=== PATIENT | female | born 1980 | race Caucasian/White ===

== ENCOUNTER 2017-09-02 16:22 | Observation (INO) ==
[2017-09-02] MEDS ORDERED: 0.9 % Sodium Chloride 1,000 ML IVC ONE ×2 (16:40→18:23)
[2017-09-02 16:57] LABS: Bilirubin,Urine Small (Negative); Blood,Urine Negative (Negative); Clarity,Urine Cloudy (Clear); Color,Urine Dark Yellow (Yellow); Glucose,Urine (UA) Normal (Normal); Ketones,Urine Negative (Negative); Leukocyte Esterase,Urine Small (Negative); Nitrite,Urine Negative (Negative); PH,Urine 5.5 pH Units (5.0-8.0); Protein,Urine 30 mg/dL (Neg-Trace); Specific Gravity,Urine 1.028 (1.010-1.025); Urobilinogen,Urine Normal (Normal)
[2017-09-02 16:58] LABS: Bacteria,Urine None Seen per hpf (None-Few); Hyaline Casts,Urine Few per lpf (None-Few); Squamous Epithelial Cell,Urine Many per lpf (None-Few)
[2017-09-02 17:16] LABS: Basophils # 0.1 K/mcL (0.0-0.2); Basophils % 0.7 %; Eosinophils # 0.1 K/mcL (0.0-0.6); Hematocrit 41.1 % (35.3-44.9); Hemoglobin 13.4 g/dL (11.5-15.4); Immature Granulocytes % 0.2 % (0-4); Lymphocytes # 5.7 K/mcL (0.6-4.6); Mean Corpuscular HGB Conc 32.6 g/dL (31.6-35.5); Mean Corpuscular Hemoglobin 29.5 pg (28.0-33.3); Mean Corpuscular Volume 90.5 fL (83.0-100.0); Monocytes # 1.1 K/mcL (0.0-1.3); Monocytes % 8.2 %; Neutrophils # 6.2 K/mcL (1.6-8.9); Platelet Count 340 K/mcL (140-400); Red Blood Count 4.54 M/mcL (3.82-4.97); Red Cell Distribution Width 12.8 % (11.5-14.5); Segmented Neutrophils % 46.9 %
[2017-09-02 17:19] LABS: Prothrombin Time 11.2 Seconds (9.4-12.1)
[2017-09-02 17:21] LABS: Activated Partial Thrombo Time 30.3 Seconds (26.0-36.0)
--- NOTE | 2017-09-02 17:25 | Emergency Department Note ---
Disposition Clinical Impression: Acute kidney insufficiency, Dehydration, Stress reaction causing mixed disturbance of emotion and conduct Disposition: Admitted As Inpatient Condition: Good Time of Disposition: 19:41 General Adult HPI - General Chief complaint: ED Dizziness Stated complaint: passed out / light headed Time Seen by Provider: 09/02/17 16:39 Source: patient Mode of arrival: ambulatory Limitations: no limitations Nursing Notes Reviewed: Yes Vital Signs Reviewed: Yes - History of Present Illness HPI Narrative: Patient presents to emergency room for evaluation of intermittent confusion intermittent difficulty with speech. Patient denies any recent trauma or injury of the same symptoms presently 3 days ago. THIS CAME ON SECONDARY DISTRESS AT THIS TIME. SHE HAS A HISTORY OF STRESS-INDUCED RELATED ISSUES FROM SEVERAL YEARS AGO. SHE DOES NOT TAKE ANY HOME MEDICATIONS AT THIS POINT. PATIENT DENIES ANY TRAUMA OR ILLNESS. SHE IS NOT ON ANY CONTROL AND HAS HAD A TOTAL HYSTERECTOMY. PATIENT OTHERWISE IS IN NO DISTRESS AND PHYSICAL PRESENTATION SHE IS VERY TEARFUL AND CRYING WHEN I PRESENTED THE ROOM. PATIENT DENIES CHEST PAIN SHORTNESS WITH HEADACHE VISION CHANGES NAUSEA VOMITING OR DIARRHEA. Onset (ago): hour(s) Radiation: non-radiation Pain Scale: 0 Consistency: intermittent Improves with: rest Worsens with: other Associated symptoms: Reports: denies other symptoms Treatments Prior to Arrival: none - Related Data Home Medications Medication Instructions Recorded Confirmed Ibuprofen 12/30/15 Previous Rx's Medication Instructions Recorded Ciprofloxacin HCl [Cipro] 250 mg PO BID #10 tablet 03/29/16 Fluconazole [Diflucan] 150 mg PO ONCE #1 tab 03/29/16 Allergies Allergy/AdvReac Type Severity Reaction Status Date / Time nitrofurantoin Allergy See Verified 03/29/16 19:50 [From Macrobid] Comments All systems ED: reviewed and negative except as stated. Review of Systems: As Per HPI Constitutional: Denies: fever, chills, weakness Cardiovascular: Denies: chest pain, palpitations, dyspnea on exertion Respiratory: Denies: cough, dyspnea, wheezes Gastrointestinal: Denies: nausea, vomiting, diarrhea Genitourinary: Denies: dysuria, frequency Musculoskeletal: Denies: back pain, neck pain Neurological: Denies: headache, weakness Psychiatric: Reports: anxiety, depression Past Medical History - Past Medical History Attestation: Yes The following information was validated with the patient. Source: patient Medical history: Reports: kidney stones, valvular heart disease, other Psychiatric history: Reports: no psych history - Social History Smoking Status: Current every day smoker Smokeless Tobacco Status: No Alcohol use: Reports: none Drug use: Reports: none Physical Exam - General Limitations: no limitations General appearance: alert, in no apparent distress - Head Head exam: atraumatic, normocephalic, normal inspection - Eye Eye exam: Present: normal appearance, PERRL, EOMI. Absent: miosis, mydriasis - ENT ENT exam: normal exam, normal oropharynx, mucous membranes moist - Neck Neck exam: Present: normal inspection, full ROM, trachea midline - Chest Chest inspection: Present: normal inspection, symmetric chest wall rise - Respiratory Respiratory exam: Present: normal lung sounds bilaterally - Cardiovascular Cardiovascular exam: Present: regular rate, normal rhythm, normal heart sounds - Abdominal Exam Abdominal exam: Present: soft, Non-Tender, normal bowel sounds. Absent: tenderness, distention, guarding, rebound, rigidity - Extremities Exam Extremities exam: Present: normal inspection, full ROM, normal capillary refill. Absent: tenderness - Back Exam Back exam: Present: normal inspection, full ROM. Absent: tenderness, CVA tenderness (R), CVA tenderness (L) - Neurological Exam Neurological exam: Present: alert, oriented X3, CN II-XII intact, normal gait - Skin Skin exam: Present: warm, dry, intact, normal color Course Course Narrative: Patient seen and examined the time of arrival. See history of present illness. 37-year-old female presents to emergency room with complaints including difficulty with speech, dizziness, syncopal events, lightheadedness. Patient has been under a great stressor lately including several home life stressors and work-related issues. Patient denies any trauma or injury. Denies any new medications. Denies any illnesses including fevers chills nausea vomiting or diarrhea. Denies chest pain shortness of breath headache or vision change. Patient had onset of symptoms approximately 1 PM this afternoon. Currently on presentation here physical exam is unremarkable except for the patient is very tearful and has some difficulty with getting out words. Patient speaks in full sentences and then within the same sentences to stop and pause and think about what she wants to say. Vital signs were unremarkable. Head is atraumatic pupils are equal round reactive to light and ocular muscles are intact. Oral mucosa and pharynx are patent. Patient has no signs of facial asymmetry. Trachea is midline. Lungs are clear heart is regular abdomen is soft. Patient moves all 4 extremities with purpose with no signs of acute cerebellar dysfunction or ataxia. Low clinical suspicion for neurologic related issue at this time patient appears to have stress-related aphasia secondary to stressors at home including issues with her and children. Patient will have CT imaging workup and EKG completed at this time for definitive evaluation. Disposition pending workup and treatment course. - Reevaluation(s) Reevaluation #1: CT imaging is otherwise unremarkable. Labs are otherwise normal except patient does have a significantly elevated creatinine with you and and a decreased GFR. Concern is noted for dehydration and acute kidney insufficiency of unknown etiology. Urine drug screen and urinalysis are still pending at this point. Patient will be provided with fluids. Continue to be monitored. Consultation placed to the neurologist . Reviewed the presentation symptoms and history and he agrees this is not a stroke I presentation and physical is more stress-induced aphasia secondary to life stressors at this time. Recommended further evaluation inpatient setting secondary to the medical issues. We will monitor urine to admission process is completed Time: 19:10 Reevaluation #2: Patient reevaluated she is speaking in full sentences again at this time. Family is all the bedside. She was scheduled to have an outpatient renal ultrasound completed tomorrow secondary to some kidney issues. Her most recent creatinine was reviewed at 0.7 today and he functions 2.28 with a GFR that is significantly low as well as an elevated BUN/creatinine. Patient otherwise is negative workup and evaluation. Hospice patient this time for admission. Time: 19:39 Reevaluation #3: Patient discussed with the hospitalist Dr. Sequeira. No other recommendations and issues at this time. Patient will be brought in for evaluation of kidney insufficiency secondary to unknown etiology. Consultation is placed for neurology for inpatient evaluation. No other concerns or issues noted this time. Patient will be admitted for definitive evaluation. Time: 19:50 Vital Signs Temperature 97.8 F 09/02/17 16:31 Pulse Rate 104 09/02/17 16:31 Respiratory Rate 18 09/02/17 16:31 Blood Pressure 126/78 09/02/17 16:31 O2 Sat by Pulse Oximetry 95 09/02/17 16:31 Temperature 97.8 F 09/02/17 16:31 Pulse Rate 104 09/02/17 16:31 Respiratory Rate 18 09/02/17 16:31 Blood Pressure 126/78 09/02/17 16:31 O2 Sat by Pulse Oximetry 95 09/02/17 16:31 Oxygen Delivery Oxygen Delivery Room Air Medical Decision Making - MDM Narrative Medical decision making narrative: Stress reaction, acute kidney insufficiency, dehydration - Medical Records Medical records reviewed: Yes I reviewed the patient's medical records. - Lab Data Lab results reviewed: Yes I reviewed the patient's lab results. - Radiology Data Radiology results reviewed: Yes I reviewed the patient's radiology results. CT imaging of the head is negative for acute intracranial pathology - EKG Data EKG #1 EKG attestation: Yes I reviewed and interpreted this EKG. EKG results narrative: EKG shows sinus rhythm. Ventricular rate of 76. [place] interval 163. QRS duration 104. QTC of 432. Intervals are within normal limits. Morphology appears to be similar to EKG performed on . Patient has no acute signs of ST segment elevation or myocardial infarction
[2017-09-02 17:27] LABS: BUN/Creatinine Ratio 11 (6-26); Blood Urea Nitrogen 26 mg/dL (7-20); Calcium 10.2 mg/dL (8.6-10.8); Carbon Dioxide 25 mEq/L (19-29); Chloride 102 mEq/L (98-109); Glucose 101 mg/dL (70-99); Osmolality,Calculated 295 (280-300); Potassium 3.3 mEq/L (3.5-4.5); Sodium 140 mEq/L (136-145); eGFR For African Americans 26 (> 60); eGFR For Non-African Americans 22 (> 60)
[2017-09-02] MEDS ORDERED: *HR* LORazepam 2 MG/ML VIAL IVP ONE (17:31)
[2017-09-02] MEDS ORDERED: *HR* LORazepam 2 MG/ML VIAL ONE (17:34)
[2017-09-02 18:08] LABS: Acetaminophen < 1.0 mcg/mL (10-30); Ethanol < 10 mg/dL (0-10); Salicylate < 5.0 mg/dL (15-30)
[2017-09-02 18:36] LABS: Amphetamine Screen,Urine Negative ng/mL (Cutoff=1000); Barbiturate Screen,Urine Negative ng/mL (Cutoff=200); Benzodiazepines Screen,Urine Negative ng/mL (Cutoff=200); Cannabinoid Screen,Urine Negative ng/mL (Cutoff = 50); Cocaine Screen,Urine Negative ng/mL (Cutoff= 300); Opiate Screen,Urine Negative ng/mL (Cutoff=300); Phencyclidine Screen,Urine Negative ng/mL (Cutoff=25)
[2017-09-02] MEDS ORDERED: *HR* Morphine 2 MG/ML SYRINGE IVP ONE (19:39)
[2017-09-02] MEDS ORDERED: Ondansetron 4 MG/2 ML VIAL IVP ONE (19:39)
[2017-09-02] MEDS ORDERED: Naloxone 0.4 MG/ML INJ IVP PRN (20:06)
[2017-09-02] MEDS ORDERED: Ondansetron 4 MG/2 ML VIAL IVP PRN (20:06)
[2017-09-02] MEDS ORDERED: Acetaminophen 325 MG TABLET PO PRN (20:06)
[2017-09-02] MEDS ORDERED: *HR* Promethazine 25 MG/ML VIAL IVP PRN (20:06)
[2017-09-02] MEDS ORDERED: MOM Conc 10 ML UD.LIQ PO PRN (20:06)
[2017-09-02] MEDS: 0.9 % Sodium Chloride 1,000 ML IVC SCH (22:43)
--- NOTE | 2017-09-02 23:35 | Internal Med History&Physical ---
Date of Encounter: 09/02/17 Time of Encounter: 22:15 Assessment and Plan (1) Speech abnormality Current visit: Yes Status: Acute will place the pt into tele for observation her speech abnormality seems to mostly conductive and functional disorder however still need to r/o CVA given her morbid obesity, age, HTN and FH of CVA Will place her on monitor Do neuro checks Q4hr MRI of Brain, 2 D Echo and Carotid doppler EKG showed as NSR , No ST T changes started on ASA 81 mg will check FLP in AM Qualifiers: Qualified Code(s): R47.9 - Unspecified speech disturbances (2) Acute kidney insufficiency Current visit: Yes Status: Acute Due to dehydration + Medication Lisinopril / Hctz Also concerned for CKD-2 Will start her on IV fluids hold Lisinopril / Hactz Her BP running slightly on lower side started on IV fluids (3) Dehydration Current visit: Yes Status: Acute on IVF (4) Stress reaction causing mixed disturbance of emotion and conduct Current visit: Yes Status: Acute Will consult SW for further eval Also recommend to f/u with her regular behavioral therapist as an out pt (5) Anxiety Current visit: Yes Status: Acute Resumed home meds Internal Medicine - H&P: HPI Chief complaint: Confusion / speech problems Admitted From: Emergency Dept Plans for Post Hospital Care: Home History of present illness: Ms. Hanna is a 37 year old female with known PMH of HTN, Morbid obesity, Anxiety and ?? CKD-2 who presented to emergency room for evaluation of intermittent confusion intermittent difficulty with speech started this afternoon. Patient denies any recent trauma or injury of the same symptoms presently 3 days ago. She had CT of Head done which did not show any acute hemorrhage / no acute pathology. She also mentioned she had lot of stress at home lately, denied any abusive relatonship. She denied any suicidal / homicidal ideation. She lives with her and son. She quit her on 06/2017. Past Med Surg Social Fam HX - Past Medical History Medical history: kidney stones, valvular heart disease, other Psychiatric history: no psych history - Past Surgical History Surgical History: - Social History Smoking Status: Current every day smoker Smokeless Tobacco Status: No Alcohol use: none Drug use: none - Family History Mother Adopted: No Living Status: Still Living Hx Family Cardiac Disorders: Yes Hx Family Respiratory Disorders: No Hx Family Cancer: No Hx Family GI Disorders: No Hx Family Genitourinary Disorders: No Hx Family Endocrine Disorder: Yes Hx Family Musculoskeletal Disorders: No Hx Family Neuromuscular Disorders: No Hx Family Neurologic Disorders: No Hx Family HEENT Disorders: Yes Hx Family Autoimmune Disorders: No Hx Family Reproductive Disorders: No Hx Family Psychosocial Disorders: No Hx Family Medical Disorders: No Internal Medicine - H&P: Meds Amoxicillin [Amoxil] 500 mg PO BID 09/02/17 [History] DULoxetine [Cymbalta] 20 mg PO BID 09/02/17 [History] Gabapentin [Neurontin] 300 mg PO TID 09/02/17 [History] Lisinopril/Hydrochlorothiazide [Zestoretic 20-12.5 mg Tablet] 1 each PO BID 08/11 [History] Topiramate [Topamax] 25 mg PO BID 09/02/17 [History] Trazodone HCl 100 mg PO HS 09/02/17 [History] 3 Allergy/AdvReac Type Severity Reaction Status Date / Time nitrofurantoin Allergy See Verified 03/29/16 19:50 [From Macrobid] Comments All Systems PM: A 10-system review of systems was performed and is negative for pertinent findings except as documented above in the HPI. Review of systems: All the systems are reviewed everything is benign except the systems and symptoms I mentioned in the history of present illness - Constitutional Vitals: Temp Pulse Resp BP Pulse Ox 97.6 F 57 15 99/68 97 09/02/17 23:08 09/02/17 23:08 09/02/17 23:08 09/02/17 23:08 09/02/17 23:08 General appearance: Present: A&O X 3, no acute distress, answers questions appropriately (however some times still finding words) - Head Head exam: Present: atraumatic, normal inspection - Neck Neck exam general surgery: Present: supple - Respiratory Respiratory exam: Present: decreased breath sounds. Absent: accessory muscle use, rales, rhonchi, wheezes - Cardiovascular Cardiovascular exam: Present: RRR, +S1, +S2. Absent: diastolic murmur, gallop, rubs, systolic murmur - GI/Abdominal GI/Abdominal exam: Present: distended, soft. Absent: guarding, rebound, rigid, tenderness - Extremities Exam Extremities exam: Absent: calf tenderness, pedal edema, tenderness - Back Exam Back exam: Absent: CVA tenderness (L), CVA tenderness (R) - Neurological Exam Neurological exam: Present: alert, CN II-XII intact, oriented X3, strengths equal and symetr throughout, speech deficit (still has some difficulty to find words). Absent: motor sensory deficit, pronater drift, facial droop - Psychiatric Psychiatric exam: Present: anxious, depressed. Absent: suicidal ideation - Skin Skin exam: Present: dry Internal Med - H&P Results - Labs CBC & Chem 7: 09/02/17 16:57 09/02/17 16:57 Labs: Cardiac Enzymes 09/02/17 Range/Units 22:08 Troponin I 0.00 (0-0.03) ng/mL - Impressions ITS Impressions Retroperitoneum Ultrasound 09/02/17 20:13 IMPRESSION: Unremarkable ultrasound of the kidneys. D/ / Darren Escamilla MD / Darren Escamilla MD Interpreting Provider: Darren Escamilla MD Brain MRI 09/02/17 20:14 IMPRESSION: Unremarkable MRI of the brain. No acute intracranial abnormality. D/ / 09/02/2017 21:59:56 Jose Cage MD / Tierney Esteves Interpreting Provider: Jose Cage MD
[2017-09-02] MEDS: Gabapentin 300 MG CAPSULE PO SCH (23:55)
[2017-09-02] MEDS: *HR* HYDROcodone/Acet 5/325 mg TABLET PO PRN (23:55)
[2017-09-03] MEDS: traZODone 50 MG TABLET PO SCH ×2 (00:27→20:14)
[2017-09-03] MEDS: Topiramate 25 MG TABLET PO SCH ×3 (00:27→20:15)
[2017-09-03] MEDS: *HR* Morphine 2 MG/ML SYRINGE IVP PRN ×5 (02:45→20:14)
[2017-09-03] MEDS: *HR* HYDROcodone/Acet 5/325 mg TABLET PO PRN ×3 (04:52→21:57)
[2017-09-03 07:03] LABS: Basophils # 0.1 K/mcL (0.0-0.2); Basophils % 0.7 %; Eosinophils # 0.1 K/mcL (0.0-0.6); Eosinophils % 1.6 %; Hematocrit 34.6 % (35.3-44.9); Immature Granulocytes % 0.2 % (0-4); Lymphocytes # 5.1 K/mcL (0.6-4.6); Lymphocytes % 58.2 %; Mean Corpuscular HGB Conc 31.8 g/dL (31.6-35.5); Mean Corpuscular Hemoglobin 29.4 pg (28.0-33.3); Mean Corpuscular Volume 92.5 fL (83.0-100.0); Mean Platelet Volume 10.4 fL (9.4-12.4); Monocytes # 0.8 K/mcL (0.0-1.3); Neutrophils # 2.6 K/mcL (1.6-8.9); Platelet Count 266 K/mcL (140-400); Red Blood Count 3.74 M/mcL (3.82-4.97); Segmented Neutrophils % 30.3 %
[2017-09-03] MEDS: 0.9 % Sodium Chloride 1,000 ML IVC SCH (07:19)
[2017-09-03 07:20] LABS: Albumin 3.2 g/dL (3.5-5.0); Albumin/Globulin Ratio 1.1 (1.1-2.2); Bilirubin,Total 0.3 mg/dL (0.2-1.2); Chol/HDL Ratio 6.7 (0-4.9); Potassium 3.2 mEq/L (3.5-4.5); Total Protein 6.2 g/dL (6.0-8.3)
[2017-09-03 07:21] LABS: Calcium 8.6 mg/dL (8.6-10.8)
[2017-09-03] MEDS ORDERED: Perflutren Lipid Microsphere 1.3 ML in 0.9 % Sodium Chloride 8.7 ML IVP ONE (08:22)
[2017-09-03] MEDS: Gabapentin 300 MG CAPSULE PO SCH ×3 (09:58→20:15)
[2017-09-03] MEDS: Aspirin Enteric Coated 81 MG Tablet PO SCH (10:00)
[2017-09-03] MEDS ORDERED: Potassium Chloride Elixir 20 MEQ/15 ML UDC PO ONE (11:41)
[2017-09-03] MEDS ORDERED: 0.9 % Sodium Chloride 1,000 ML IVC SCH (11:44)
--- NOTE | 2017-09-03 13:55 | Neurology - Consult Note ---
<[place] - Last Filed: 09/03/17 13:49> Date of Encounter: 09/03/17 Time of Encounter: 11:40 Assessment and Plan (1) Stress reaction causing mixed disturbance of emotion and conduct Current Visit: Yes Status: Acute Patient presents to [place] after reports of neurologic symptoms including difficulty with speech and word finding. Physical exam showed decreased upper and lower extremity strength, was unclear how much patient was trying. Head CT , MRI, and echocardiogram were grossly normal without abnormal findings. Patient reported event does not appear to be vascular. Lack of incontinence or tongue lacerations suggest against seizure. Patient does admit to significant stress in her life currently. Imaging so far is negative for acute abnormality including CVA We will obtain EEG Likely prevent stress-induced History of Present Illness Chief complaint: Neurological Deficits HPI: Ms. Hanna is a 37 year old female with past medical history of hypertensionn after having neurological deficits at home. She reports that the first episode occurred last in which she lost consciousness. She states this was from feeling faint and that she was out for a minute. After waking she reports having significant fatigue and having difficulty staying awake she also reports having difficulty forming sentences, though she did not know what she wanted to say. After her loss of consciousness on she states she had a brief episode of double vision that lasted for about an hour. All of these neurological findings want way after sleeping. She was fine until yesterday evening and on her way home from work she began having the same neurologic symptoms. She reports that she was feeling faint and pulled over to the side of her own at which point tingling in her hands and feet upon waking was having blurred vision. She was again having difficulty forming sentences. She states that she has been under increased stress recently on account of her daughter dropping out from school and this has made her anxious. Although she admits to having previous episodes of feeling upset, she responds that she hasn't been upset at this time. Past Med Surg Social Fam HX - Past Medical History Medical history: kidney stones, valvular heart disease, other Psychiatric history: no psych history - Past Surgical History Surgical History: - Social History Smoking Status: Current every day smoker Smokeless Tobacco Status: No Alcohol use: none Drug use: none - Family History Mother Adopted: No Living Status: Still Living Hx Family Cardiac Disorders: Yes Hx Family Respiratory Disorders: No Hx Family Cancer: No Hx Family GI Disorders: No Hx Family Genitourinary Disorders: No Hx Family Endocrine Disorder: Yes Hx Family Musculoskeletal Disorders: No Hx Family Neuromuscular Disorders: No Hx Family Neurologic Disorders: No Hx Family HEENT Disorders: Yes Hx Family Autoimmune Disorders: No Hx Family Reproductive Disorders: No Hx Family Psychosocial Disorders: No Hx Family Medical Disorders: No Medications and Allergies Amoxicillin [Amoxil] 500 mg PO BID 09/02/17 [History] DULoxetine [Cymbalta] 20 mg PO BID 09/02/17 [History] Gabapentin [Neurontin] 300 mg PO TID 09/02/17 [History] Lisinopril/Hydrochlorothiazide [Zestoretic 20-12.5 mg Tablet] 1 each PO BID 08/11 [History] Topiramate [Topamax] 25 mg PO BID 09/02/17 [History] Trazodone HCl 100 mg PO HS 09/02/17 [History] 3 Allergy/AdvReac Type Severity Reaction Status Date / Time nitrofurantoin Allergy See Verified 03/29/16 19:50 [From Macrobid] Comments Review of Systems: Gen: Denies fever, denies chills, reports generalized weakness, reports fatigue as per HPI CV: Denies chest pain, denies palpitations recently Resp: Denies shortness of breath MSK: denies arthralgia, denies focal muscle weakness Neuro: Denies headache, denies confusion, denies focal weakness, reports stable vision as per history of present illness, reports numbness/tingling in her hands and feet bilaterally, reports blurry vision as per history of present illness, denies tongue biting, denies episodes of urinary/bowel incontinence Physical Examination - Vital Signs Vital Signs: Initial Vital Signs Temp Pulse Resp BP Pulse Ox 97.8 F 104 18 126/78 95 09/02/17 16:31 09/02/17 16:31 09/02/17 16:31 09/02/17 16:31 09/02/17 16:31 - Exam Exam: General: Cooperative, pleasant, no acute distress, alert and oriented 3, answers questions appropriately HEENT: Normocephalic, atraumatic, neck supple, trachea midline, Conjunctiva pink , sclera anicteric, EOMI, PERRL, oral mucosa moist, no orophargeal erythema or exudates, no tongue lacerations noted Respiratory: No accessory muscle usage, clear to auscultation bilaterally Cardiovascular: Regular rate and rhythm Extremities: No calf tenderness, noncyanotic, no pedal edema appreciated, warm, lower extremity pulses palpable and symmetrical Neurological: Alert and oriented 3, no facial droop, no focal deficits, cranial nerves II through XII grossly intact bilaterally, rapid alternating movements smooth with good meli, finger to nose slow, sensation to gross touch intact in upper extremities and lower extremities bilaterally, strength 5/ 5 in upper and lower right extremities, strength 4/5 in upper and lower extremities on left, DTRs 1/4 in Achilles, patellar, brachioradialis Skin: Dry, intact, normal color Results - Laboratory Findings CBC and BMP: 09/03/17 06:41 09/03/17 06:41 Abnormal lab findings: Abnormal lab results RBC 3.74 M/mcL (3.82-4.97) L 09/03/17 06:41 Hgb 11.0 g/dL (11.5-15.4) L D 09/03/17 06:41 Hct 34.6 % (35.3-44.9) L 09/03/17 06:41 Lymphocytes # 5.1 K/mcL (0.6-4.6) H 09/03/17 06:41 Potassium 3.2 mEq/L (3.5-4.5) L 09/03/17 06:41 BUN 22 mg/dL (7-20) H 09/03/17 06:41 Creatinine 1.60 mg/dL (0.57-1.11) H 09/03/17 06:41 Est GFR ( Amer) 44 (> 60) L 09/03/17 06:41 Est GFR (Non-Af Amer) 36 (> 60) L 09/03/17 06:41 Glucose 156 mg/dL (70-99) H 09/03/17 06:41 Albumin 3.2 g/dL (3.5-5.0) L 09/03/17 06:41 Triglycerides 323 mg/dL (< 150) H 09/03/17 06:41 VLDL Cholesterol, Calc 65 mg/dL (< 31) H 09/03/17 06:41 HDL Cholesterol 24 mg/dL (40-59) L 09/03/17 06:41 Cholesterol/HDL Ratio 6.7 (0-4.9) H 09/03/17 06:41 Urine Clarity Cloudy (Clear) A 09/02/17 16:50 Ur Specific [place] 1.028 (1.010-1.025) H 09/02/17 16:50 Urine Protein 30 mg/dL (Neg-Trace) H 09/02/17 16:50 Urine Bilirubin Small (Negative) H 09/02/17 16:50 Ur Leukocyte Esterase Small (Negative) H 09/02/17 16:50 Urine Microscopic RBC 5-15 per hpf (0-3) H 09/02/17 16:50 Urine Microscopic WBC 5-15 per hpf (0-3) H 09/02/17 16:50 Ur Squamous Epith Cells Many per lpf (None-Few) H 09/02/17 16:50 Ur Culture Indicated? YES (NO) A 09/02/17 16:50 Salicylates < 5.0 mg/dL (15-30) L 09/02/17 16:57 Acetaminophen < 1.0 mcg/mL (10-30) L 09/02/17 16:57 Consult Discharge Plan - Plan Referrals: Mercedes Stephens, [facility] [Primary Care Provider] - <Everton Boone I - Last Filed: 09/04/17 16:59> Date of Encounter: 09/03/17 Assessment and Plan (1) Speech abnormality Current Visit: Yes Status: Acute Qualifiers: Qualified Code(s): R47.9 - Unspecified speech disturbances (2) Stress reaction causing mixed disturbance of emotion and conduct Current Visit: Yes Status: Acute Patient seen and examined agreed with Dr. Damico documentation she has been getting workup for vascular abnormality as well as for seizures and no focal findings on neurological examination to be suggestive of a stroke or seizure followed results strongly suspect her symptoms are likely related to underlying stress Everton Boone MD History of Present Illness HPI: Ms. Hanna is a 37 year old female All Systems: A 10-system review of systems was performed and is negative for pertinent findings except as documented above in the HPI. Physical Examination - Vital Signs Vital Signs: Initial Vital Signs Temp Pulse Resp BP Pulse Ox 97.8 F 104 18 126/78 95 09/02/17 16:31 09/02/17 16:31 09/02/17 16:31 09/02/17 16:31 09/02/17 16:31 Results - Laboratory Findings CBC and BMP: 09/04/17 07:03 09/04/17 07:03 Abnormal lab findings: Abnormal lab results ESR 28 mm/hr (0-15) H 09/04/17 07:03 Creatinine 1.20 mg/dL (0.57-1.11) H 09/04/17 07:03 Est GFR (Non-Af Amer) 50 (> 60) L 09/04/17 07:03 Glucose 103 mg/dL (70-99) H 09/04/17 07:03 C-Reactive Protein 5 mg/L (Less than 5) H 09/04/17 07:03 Albumin 3.2 g/dL (3.5-5.0) L 09/03/17 06:41 Triglycerides 323 mg/dL (< 150) H 09/03/17 06:41 VLDL Cholesterol, Calc 65 mg/dL (< 31) H 09/03/17 06:41 HDL Cholesterol 24 mg/dL (40-59) L 09/03/17 06:41 Cholesterol/HDL Ratio 6.7 (0-4.9) H 09/03/17 06:41 Ur Leukocyte Esterase Trace (Negative) H 09/03/17 20:02 Urine Microscopic WBC 3-5 per hpf (0-3) H 09/03/17 20:02 Ur Squamous Epith Cells Many per lpf (None-Few) H 09/03/17 20:02 Ur Culture Indicated? YES (NO) A 09/03/17 20:02 Salicylates < 5.0 mg/dL (15-30) L 09/02/17 16:57 Acetaminophen < 1.0 mcg/mL (10-30) L 09/02/17 16:57
--- NOTE | 2017-09-03 15:47 | Internal Med Progress Note ---
<MalsophiaKimberly stoll - Last Filed: 09/03/17 15:43> Date of Encounter: 09/03/17 Time of Encounter: 13:00 - Assessment and plan (1) Speech abnormality Current Visit: Yes Status: Acute Assessment and plan: Patient's workup for CVA largely negative. -Patient started on an antiplatelet aspirin 81 mg. -Neuro following. We will follow their recommendations. -EKG normal sinus rhythm, no ST T-wave changes. -Started on Lipitor today for hyper triglyceridemia. Qualifiers: Qualified Code(s): R47.9 - Unspecified speech disturbances (2) Weight loss Current Visit: Yes Status: Acute Assessment and plan: Patient with an unexplained 37 pound weight loss and reported hematuria as well as mild left-sided flank pain. -Follow-up abdominopelvic CT scan. (3) Stress reaction causing mixed disturbance of emotion and conduct Current Visit: Yes Status: Acute Assessment and plan: consult psychiatry. -FU their recommendations. (4) Acute kidney insufficiency Current Visit: Yes Status: Acute Assessment and plan: Patient with worsening creatinine and intermittent hematuria. Never been seen by a risk control consultant. -Patient's creatinine trended down today after IV fluids and discontinuation of lisinopril and HCTZ. -Blood pressure trending on the low side. -Continue IV fluids. -Consult nephrology (5) Anxiety Current Visit: Yes Status: Acute Assessment and plan: Patient heard loudly crying throughout the evening. -FU psych recommendations. (6) Dehydration Current Visit: Yes Status: Acute Assessment and plan: IVF - Subjective Interval history: Ms. Hanna is a 37-year-old female with past medical history of hypertension, morbid obesity, anxiety, and chronic kidney disease who presented to the emergency department yesterday for evaluation of intermittent difficulty with speech that began prior to arrival. Patient's workup for CVA grossly normal. This morning, patient says she is feeling lightheaded and weak. She states she has had a 39 pound weight loss in the last month. She reports hematuria, although the nurse has not seen any in her head. The patient states she is under significant amount of stress and is seen staring off into space during my visit. Patient stating she is having 6 out of 10 left-sided flank pain which feels crampy and dull. She says it feels like a kidney stone that she had 15 years prior. - Constitutional Vitals: Temp Pulse Resp BP Pulse Ox 98.1 F 75 20 130/71 97 09/03/17 15:07 09/03/17 15:07 09/03/17 15:07 09/03/17 15:07 09/03/17 15:07 General appearance: Present: A&O X 3, no acute distress, answers questions appropriately (however some times still finding words) - Respiratory Respiratory exam: Present: CTAB. Absent: accessory muscle use, rales, rhonchi, wheezes - Cardiovascular Cardiovascular exam: Present: RRR, +S1, +S2. Absent: diastolic murmur, gallop, rubs, systolic murmur - GI/Abdominal GI/Abdominal exam: Present: normal bowel sounds, soft, no peritoneal signs. Absent: distended, tenderness Additional comments: Mild left-sided CVA tenderness. - Extremities Exam Extremities exam: Present: warm, radial pulses palpable and symmetrical. Absent : calf tenderness, cyanotic, pedal edema - Psychiatric Additional comments: Patient appears depressed with a flat affect. Internal Medicine: Result - Labs CBC & Chem 7: 09/03/17 06:41 09/03/17 06:41 Labs: Short CBC 09/03/17 Range/Units 06:41 WBC 8.7 (4.3-11.1) K/mcL Hgb 11.0 L D (11.5-15.4) g/dL Hct 34.6 L (35.3-44.9) % Plt Count 266 (140-400) K/mcL Neutrophils # 2.6 (1.6-8.9) K/mcL BMP 09/03/17 06:41 Sodium 141 Potassium 3.2 L Chloride 109 Carbon Dioxide 24 BUN 22 H Creatinine 1.60 H Glucose 156 H Calcium 8.6 D Cardiac Enzymes 09/02/17 09/03/17 Range/Units 22:08 06:41 Troponin I 0.00 0.01 (0-0.03) ng/mL Liver Function 09/03/17 Range/Units 06:41 Total Bilirubin 0.3 (0.2-1.2) mg/dL AST 32 (5-34) Units/L ALT 44 (0-55) Units/L Alkaline Phosphatase 48 (38-126) Units/L Albumin 3.2 L (3.5-5.0) g/dL - ABG Interpretation ABG results: PT/INR, D-dimer PT 11.2 Seconds (9.4-12.1) 09/02/17 16:57 - Impressions Impressions Retroperitoneum Ultrasound 09/02/17 20:13 IMPRESSION: Unremarkable ultrasound of the kidneys. D/ / Darren Escamilla MD / Darren Escamilla MD Interpreting Provider: Darren Escamilla MD Brain MRI 09/02/17 20:14 IMPRESSION: Unremarkable MRI of the brain. No acute intracranial abnormality. D/ : / 09/02/2017 21:59:56 Jose Cage MD / Tierney Esteves Interpreting Provider: Jose Cage MD Echocardiogram 09/03/17 20:14 Impressions: LVEF 55%. Normal LV chamber size, wall thickness and function. No significant valvular dysfunction. Mildly dilated right ventricle with normal systolic function There is no evidence of a PFO by color Doppler or saline contrast. Left Ventricular Wall Motion: Rest Echo Findings All wall segments showed normal motion. Findings: Study Quality * Technically adequate exam. ECG Findings * Normal sinus rhythm. Left Ventricle * LVEF 55%. * Normal LV chamber size, wall thickness and function. Right Ventricle * Mildly dilated right ventricle. Left Atrium * Normal left atrial size. Right Atrium * Normal right atrial size. Aortic Valve * No aortic regurgitation. * No aortic stenosis. * Aortic valve not well visualized. Mitral Valve * No mitral regurgitation. * No mitral stenosis. Tricuspid Valve * Trace tricuspid regurgitation. Pulmonic Valve * Mild pulmonic regurgitation. Aorta * Normally sized aortic root. Pericardium * The pericardium appears normal. IVC * Normal IVC dimensions and inspiratory collapse. Consult Discharge Plan - Plan Referrals: Mercedes Stephens, FUSION OPERATOR [Primary Care Provider] - <Janelle Larios - Last Filed: 09/03/17 16:59> Date of Encounter: 09/03/17 - Constitutional Vitals: Temp Pulse Resp BP Pulse Ox 98.1 F 75 20 130/71 97 09/03/17 15:07 10/10/17 15:07 09/03/17 15:07 09/03/17 15:07 09/03/17 15:07 Internal Medicine: Result - Labs CBC & Chem 7: 09/03/17 06:41 09/03/17 06:41 Labs: Short CBC 09/03/17 Range/Units 06:41 WBC 8.7 (4.3-11.1) K/mcL Hgb 11.0 L D (11.5-15.4) g/dL Hct 34.6 L (35.3-44.9) % Plt Count 266 (140-400) K/mcL Neutrophils # 2.6 (1.6-8.9) K/mcL BMP 09/03/17 06:41 Sodium 141 Potassium 3.2 L Chloride 109 Carbon Dioxide 24 BUN 22 H Creatinine 1.60 H Glucose 156 H Calcium 8.6 D Cardiac Enzymes 09/02/17 09/03/17 Range/Units 22:08 06:41 Troponin I 0.00 0.01 (0-0.03) ng/mL Liver Function 09/03/17 Range/Units 06:41 Total Bilirubin 0.3 (0.2-1.2) mg/dL AST 32 (5-34) Units/L ALT 44 (0-55) Units/L Alkaline Phosphatase 48 (38-126) Units/L Albumin 3.2 L (3.5-5.0) g/dL - ABG Interpretation ABG results: PT/INR, D-dimer PT 11.2 Seconds (9.4-12.1) 09/02/17 16:57 - Impressions Impressions Retroperitoneum Ultrasound 09/02/17 20:13 IMPRESSION: Unremarkable ultrasound of the kidneys. D/ / Darren Escamilla MD / Darren Escamilla MD Interpreting Provider: Darren Escamilla MD Brain MRI 09/02/17 20:14 IMPRESSION: Unremarkable MRI of the brain. No acute intracranial abnormality. D/ : / 09/02/2017 21:59:56 Jose Cage MD / Tierney Esteves Interpreting Provider: Jose Cage MD Echocardiogram 09/03/17 20:14 Impressions: LVEF 55%. Normal LV chamber size, wall thickness and function. No significant valvular dysfunction. Mildly dilated right ventricle with normal systolic function There is no evidence of a PFO by color Doppler or saline contrast. Left Ventricular Wall Motion: Rest Echo Findings All wall segments showed normal motion. Findings: Study Quality * Technically adequate exam. ECG Findings * Normal sinus rhythm. Left Ventricle * LVEF 55%. * Normal LV chamber size, wall thickness and function. Right Ventricle * Mildly dilated right ventricle. Left Atrium * Normal left atrial size. Right Atrium * Normal right atrial size. Aortic Valve * No aortic regurgitation. * No aortic stenosis. * Aortic valve not well visualized. Mitral Valve * No mitral regurgitation. * No mitral stenosis. Tricuspid Valve * Trace tricuspid regurgitation. Pulmonic Valve * Mild pulmonic regurgitation. Aorta * Normally sized aortic root. Pericardium * The pericardium appears normal. IVC * Normal IVC dimensions and inspiratory collapse. - Attending Attestation I saw and examined patient independently. I have discussed with the resident Dr Lala regarding management plan. I agree with the documentation. Patient admitted to for speech abnormality. Right now her speech get back to baseline. MRI brain shows negative for stroke. However, patient shows depressed and under a lot of stress, will consult psychiatry. Patient has chronic intermittent hematuria with worsening renal function in recent 2 months , will consult nephrology and order CT of abdominal/pelvis to rule out kidney stone or other abnormality. Patient did report unintentional body weight loss, etiology is undetermined on this 37-year-old female. Patient reports a good appetite. Denies low fever or night sweating. Patient denies smoking or drug use as well. We will check TSH, cortisol, ESR, and CRP in a.m.
--- NOTE | 2017-09-03 15:49 | Nephrology Progress Note ---
Date of Encounter: 09/03/17 Time of Encounter: 15:46 - Assessment and Plan (1) Acute kidney insufficiency Current Visit: Yes Status: Acute 37-year-old female presented with a creatinine of 2.47, GFR of 22 and a BMI of 26. Her creatinine improved to 1.60 last evening with IV fluids roughly 2 L. Patient admits to a history of hematuria but denies any known chronic kidney disease, renal demise in the past. Currently without a urinary tract infection. - Suspect prerenal cause of her acute kidney injury but cannot rule out occasional nonobstructing nephrolithiasis. Urinalysis demonstrated 30 of protein. Patient does not have a history of diabetes. Retroperitoneal ultrasound: Unremarkable ultrasounds of the kidneys. Plan: - Urine creatinine, urine sodium, serum uric acid - Urine eosinophil count - Avoid nephrotoxic medications and renally dose antibiotics - Monitor renal function with a.m. labs - Continue oral intake (2) History of hematuria Current Visit: Yes Status: Acute Patient states she roughly has 1.5-2 years of occasional hematuria roughly one time every 2 weeks currently without association of discomfort or pain. - Urinalysis from yesterday was negative for blood but did have some urine protein of around 30. - Nursing staff states that urine has been clear to yellow - Change in hemoglobin from 13.4-11.0 likely dilutional, continue to monitor for drop in hemoglobin and hematocrit. (3) Dehydration Current Visit: Yes Status: Acute Patient presented with dehydration at the time of admission received 2 L of fluids with improvement in her acute kidney injury. - Continue to encourage oral intake - Renal function is not improved tomorrow she may benefit from normal saline IV. Subjective Principal diagnosis: Acute kidney injury Interval history: Ms. Park 37-year-old female with significant past medical history of hypertension, morbid obesity, anxiety, depression and fibromyalgia was admitted to the hospital after she presented with intermittent confusion in terms of difficulty with speech. On admission she was found to have a creatinine of 2.47 , GFR of 22 and the BUS 26 with a potassium 3.3. She had improvement of her initial presenting symptoms. Since admission she received 2 L normal saline, chest x-ray, head CT, retroperitoneal ultrasound, brain MRI, echocardiogram all without any significant findings. Upon evaluation today Vivian says that she feels tired and is concerned about what is causing her presenting symptoms. With review of her kidney history she states that she had a urinalysis done roughly one month ago as her PCP was concerned she might have a urinary tract infection that demonstrated reduced kidney function. She states that she has never had kidney issues in the past has never seen a commercial lines underwriter. She has had sporadic hematuria over the last 1.5-2 years. She states that originally she started having blood in her urine once every 4-6 weeks but in the last couple of months she has noticed it more frequently roughly once every 2 weeks. She denies any associated pain, discomfort, burning with urination or any other concerning symptoms when she has bleeding with urination. She denies frequent urinary tract infections. She does have a history of gestational nephrolithiasis 18 years ago but denies any history of stones in her urine since. She denies any history of kidney injury, history of nephrotic or nephritic diseases. She did have recent ampicillin use or pharyngitis one week ago. She denies any headaches, blurry vision, fevers, chills, diaphoresis, nausea vomiting diarrhea constipation, chest pain or palpitations. Objective - Vital Signs Vital signs: Vital Signs Temp Pulse Resp BP Pulse Ox 09/03/17 15:07 98.1 F 75 20 130/71 97 09/03/17 07:58 97.9 F 79 15 103/59 96 09/03/17 03:09 97.4 F L 67 18 107/65 97 09/02/17 23:08 97.6 F 57 15 99/68 97 09/02/17 20:25 98.0 F 72 15 103/69 98 Intake and Output 09/02/17 09/03/17 09/03/17 23:59 07:59 15:59 Intake Total 0 / 1000 1000 / 1000 Output Total 0 / 0 1025 / 1025 Balance 0 / 1000 -25 / -25 Intake: IV Fluids 1000 / 1000 0.9 % Sodium Chloride 1,000 ML 1000 / 1000 @ 125 mls/hr IVC .Q8H [facility] Rx#: [id number] Oral 0 / 0 0 / 0 Output: Urine 0 / 0 1025 / 1025 Other: # Voids 1 Weight 142.7 kg 143.4 kg Patient Weight 09/03/17 23:59 Weight 143.4 kg - General Appearance General appearance: Present: well-developed, well-nourished, appears started age Neck: Present: no JVD, no thyromegaly, no carotid bruit, supple Respiratory: Present: no kyphosis, no scoliosis Cardiology: Present: no murmurs, no rub, no gallops, no edema, regular rate, regular rhythm, normal S1, normal S2 Gastrointestinal: Present: normoactive bowel sounds, no tenderness, obese Integumentary: Present: no rash, warm and dry Neurologic: Present: no focal deficit, no asterixis, alert and oriented x3, reflexes 2+ and symmetric, gait normal, strength 5/5 Musculoskeletal: Present: no deformities, no erythema, no cyanosis, no clubbing Psychiatric: Present: mood/affect appropriate, cooperative - Lab 09/03/17 06:41 09/03/17 06:41 Most recent lab results Calcium 8.6 mg/dL (8.6-10.8) D 09/03/17 06:41 Magnesium 2.0 mg/dL (1.6-2.6) 09/03/17 06:41 Consult Discharge Plan - Plan Referrals: Mercedes Stephens, FABRIC LAY OUT WORKER [Primary Care Provider] -
--- NOTE | 2017-09-03 16:41 | Electrocardiograph Report ---
[place] [id number] Test Date: 2017-09-02 Pat Name: Edna Hanna Department: 103 Room: [facility] Gender: F Security Flex Utility Officer: EKP : 1980 Requested By: John Bateman Order Number: [id number] Reading MD: Stacy Teixeira Measurements Intervals Bells Rate: 76 P: 47 MS: 163 QRS: 28 QRSD: 104 T: 30 QT: 401 QTc: 432 Interpretive Statements SINUS RHYTHM Electronically Signed On 09-03-2017 16:40:03 EDT by Stacy Teixeira
--- NOTE | 2017-09-03 16:54 | Nephrology Consult Note ---
Date of Encounter: 09/03/17 Time of Encounter: 16:49 Assessment and Plan (1) Acute kidney insufficiency Current Visit: Yes Status: Acute 37-year-old female presented with a creatinine of 2.47, GFR of 22 and a BMI of 26. Her creatinine improved to 1.60 last evening with IV fluids roughly 2 L. Patient admits to a history of hematuria but denies any known chronic kidney disease, renal demise in the past. Currently without a urinary tract infection. - Suspect prerenal cause of her acute kidney injury but cannot rule out occasional nonobstructing nephrolithiasis. Urinalysis demonstrated 30 of protein. Patient does not have a history of diabetes. Retroperitoneal ultrasound: Unremarkable ultrasounds of the kidneys. Plan: - Urine creatinine, urine sodium, serum uric acid - Urine eosinophil count, urine microalbumin - continue to hold Lisinopril and HCTZ - Avoid nephrotoxic medications and renally dose antibiotics - Monitor renal function with a.m. labs - Continue oral intake (2) History of hematuria Current Visit: Yes Status: Acute Patient states she roughly has 1.5-2 years of occasional hematuria roughly one time every 2 weeks currently without association of discomfort or pain. - Urinalysis from yesterday was negative for blood but did have some urine protein of around 30. - Nursing staff states that urine has been clear to yellow - Change in hemoglobin from 13.4-11.0 likely dilutional, continue to monitor for drop in hemoglobin and hematocrit. - abdominal CT pending. (3) Dehydration Current Visit: Yes Status: Acute Patient presented with dehydration at the time of admission received 2 L of fluids with improvement in her acute kidney injury. - Continue to encourage oral intake - Renal function is not improved tomorrow she may benefit from normal saline IV. (4) Hypokalemia Current Visit: Yes Status: Acute Patient has a hx of hypokalemia with current potassium 3.2. Already received 40meq KCL Plan: -magnesium level - 40meq KCL this evening and recheck in am. History of Present Illness - Reason for Consult Consult date: 09/03/17 Acute Kidney Injury Requesting physician: Brandon Starr - Chief Complaint BOB - History of Present Illness Ms. Park 37-year-old female with significant past medical history of hypertension, morbid obesity, anxiety, depression and fibromyalgia was admitted to the hospital after she presented with intermittent confusion in terms of difficulty with speech. On admission she was found to have a creatinine of 2.47 , GFR of 22 and the BUS 26 with a potassium 3.3. She had improvement of her initial presenting symptoms. Since admission she received 2 L normal saline, chest x-ray, head CT, retroperitoneal ultrasound, brain MRI, echocardiogram all without any significant findings. Upon evaluation today Vivian says that she feels tired and is concerned about what is causing her presenting symptoms. With review of her kidney history she states that she had a urinalysis done roughly one month ago as her PCP was concerned she might have a urinary tract infection that demonstrated reduced kidney function. She states that she has never had kidney issues in the past has never seen a icing coater. She has had sporadic hematuria over the last 1.5-2 years. She states that originally she started having blood in her urine once every 4-6 weeks but in the last couple of months she has noticed it more frequently roughly once every 2 weeks. She denies any associated pain, discomfort, burning with urination or any other concerning symptoms when she has bleeding with urination. She denies frequent urinary tract infections. She does have a history of gestational nephrolithiasis 18 years ago but denies any history of stones in her urine since. She denies any history of kidney injury, history of nephrotic or nephritic diseases. She did have recent ampicillin use or pharyngitis one week ago. She denies any headaches, blurry vision, fevers, chills, diaphoresis, nausea vomiting diarrhea constipation, chest pain or palpitations. Past Med Surg Social Fam HX - Past Medical History Medical history: kidney stones, valvular heart disease, other Psychiatric history: no psych history - Past Surgical History Surgical History: - Social History Smoking Status: Current every day smoker Smokeless Tobacco Status: No Alcohol use: none Drug use: none - Family History Mother Adopted: No Living Status: Still Living Hx Family Cardiac Disorders: Yes Hx Family Respiratory Disorders: No Hx Family Cancer: No Hx Family GI Disorders: No Hx Family Genitourinary Disorders: No Hx Family Endocrine Disorder: Yes Hx Family Musculoskeletal Disorders: No Hx Family Neuromuscular Disorders: No Hx Family Neurologic Disorders: No Hx Family HEENT Disorders: Yes Hx Family Autoimmune Disorders: No Hx Family Reproductive Disorders: No Hx Family Psychosocial Disorders: No Hx Family Medical Disorders: No Medications and Allergies Amoxicillin [Amoxil] 500 mg PO BID 09/02/17 [History] DULoxetine [Cymbalta] 20 mg PO BID 09/02/17 [History] Gabapentin [Neurontin] 300 mg PO TID 09/02/17 [History] Lisinopril/Hydrochlorothiazide [Zestoretic 20-12.5 mg Tablet] 1 each PO BID 08/11 [History] Topiramate [Topamax] 25 mg PO BID 09/02/17 [History] Trazodone HCl 100 mg PO HS 09/02/17 [History] 3 Allergy/AdvReac Type Severity Reaction Status Date / Time nitrofurantoin Allergy See Verified 03/29/16 19:50 [From Macrobid] Comments Review of Systems Constitutional: fatigue, no excessive sweating, no weight loss Eyes: bilateral: blurred vision (patient denies), diplopia (patient denies) Nose, mouth and throat: no dizziness, no headache(s) Cardiovascular: no chest pain, no palpitations Respiratory: no cough, no dyspnea Gastrointestinal: no abdominal pain, no change in bowel habits Musculoskeletal: back pain, no muscle weakness, no numbness Integumentary: no hirsutism, no striae Psychiatric: no depression, no difficulty concentrating Endocrine: as per HPI Hematologic/Lymphatic: no easy bruising, no lymphadenopathy Exam - Vital Signs Vital signs: Initial Vital Signs Temp Pulse Resp BP Pulse Ox 97.8 F 104 18 126/78 95 09/02/17 16:31 09/02/17 16:31 09/02/17 16:31 09/02/17 16:31 09/02/17 16:31 Vital Signs - Last 8 Hours Temp Pulse Resp BP Pulse Ox 09/03/17 15:07 98.1 F 75 20 130/71 97 Intake and Output 09/03/17 09/03/17 09/03/17 07:59 15:59 23:59 Intake Total 1000 / 1000 Output Total 1025 / 1025 Balance -25 / -25 Intake: IV Fluids 1000 / 1000 0.9 % Sodium Chloride 1,000 ML 1000 / 1000 @ 125 mls/hr IVC .Q8H [facility] Rx#: [id number] Oral 0 / 0 Output: Urine 1025 / 1025 Other: Weight 143.4 kg Patient Weight 09/03/17 23:59 Weight 143.4 kg - General Appearance General appearance: well-developed, well-nourished, appears started age Respiratory: no kyphosis, no scoliosis Cardiology: no murmurs, no rub, no gallops, no edema, regular rate, regular rhythm, normal S1, normal S2 Integumentary: no rash, warm and dry Neurologic: no focal deficit, no asterixis, alert and oriented x3, reflexes 2+ and symmetric, gait normal, strength 5/5 Musculoskeletal: no deformities, no erythema, no cyanosis, no clubbing Psychiatric: mood/affect appropriate, cooperative Results - Lab Results 09/03/17 06:41 09/03/17 06:41 Most recent lab results Calcium 8.6 mg/dL (8.6-10.8) D 09/03/17 06:41 Magnesium 2.0 mg/dL (1.6-2.6) 09/03/17 06:41 Consult Discharge Plan - Plan Referrals: Mercedes Stephens, HYDRAULIC ASSEMBLER [Primary Care Provider] -
--- NOTE | 2017-09-03 18:34 | Carotid Imaging Report ---
Carotid Duplex Patient Name:Edna Hanna Order Number:[id number] Procedure Date:09/03/2017 Date:1980Age:37 yrs Gender:Female Location:[facility] Room #: 3NE25 Program Planner:Aliya Oliva Referring MD:Ryland Sequeira MD Reading MD:Rodney Arteaga MD Risk Factors Yes/No Hypertension Yes Diabetes No Hypercholesterolemia No Smoker Previous Yes Hx of TIA No Hx of CVA Unknown Impressions: The right carotid artery is normal throughout. The left internal carotid artery has a 60-79% stenosis. Recommendations: Risk factor reduction. Further evaluation recommended if clinically indicated. Follow-up carotid duplex in 1 year. After imaging the patient returned to their room. Findings Carotid Duplex: Right: The right proximal common carotid artery has a PSV of 85 cm/s and a EDV of 9 cm/s. The right mid common carotid artery has a PSV of 119 cm/s and a EDV of 23 cm/s. The right distal common carotid artery has a PSV of 90 cm/s and a EDV of 22 cm/s. The right bifurcation has a PSV of 103 cm/s and a EDV of 19 cm/s. The right proximal internal carotid artery has a PSV of 78 cm/s and a EDV of 23 cm/s. The right mid internal carotid artery has a PSV of 69 cm/s and a EDV of 35 cm/s. The right distal internal carotid artery has a PSV of 78 cm/s and a EDV of 32 cm/s. The right eca has a PSV of 110 cm/s and a EDV of 10 cm/s. The right vertebral artery has a PSV of 37 cm/s and a EDV of 18 cm/s. Left: The left proximal common carotid artery has a PSV of 87 cm/s and a EDV of 23 cm/s. The left mid common carotid artery has a PSV of 90 cm/s and a EDV of 22 cm/s. The left distal common carotid artery has a PSV of 86 cm/s and a EDV of 24 cm/s. The left bifurcation has a PSV of 71 cm/s and a EDV of 25 cm/s. The left proximal internal carotid artery has a PSV of 79 cm/s and a EDV of 38 cm/s. The left mid internal carotid artery has a PSV of 75 cm/s and a EDV of 37 cm/s. The left distal internal carotid artery has a PSV of 158 cm/s and a EDV of 78 cm/s. The left eca has a PSV of 68 cm/s and a EDV of 13 cm/s. The left vertebral artery was not well visualized. Carotid Results Right PSV EDV Assessment Proximal CCA 85 9 Normal Mid CCA 119 23 Normal Distal CCA 90 22 Normal Bifurcation 103 19 Normal Proximal ICA 78 23 Normal Mid ICA 69 35 Normal Distal ICA 78 32 Normal ECA 110 10 Normal Vertebral Artery 37 18 Normal Left PSV EDV Assessment Proximal CCA 87 23 Normal Mid CCA 90 22 Normal Distal CCA 86 24 Normal Bifurcation 71 25 Normal Proximal ICA 79 38 Normal Mid ICA 75 37 Normal Distal ICA 158 78 60-79% stenosis ECA 68 13 Normal Ratio's Right ICA/CCA Ratio: 0.70 ICA/CCA Values: 78/119 Left ICA/CCA Ratio: 1.80 ICA/CCA Values: 158/90 Updated by Rodney Arteaga MD on 09/03/2017 6:30:17 PM electronically signed on 09/03/2017 6:30:32 PM with status of Final
[2017-09-03 20:07] LABS: Bilirubin,Urine Negative (Negative); Blood,Urine Negative (Negative); Clarity,Urine Clear (Clear); Color,Urine Yellow (Yellow); Glucose,Urine (UA) Normal (Normal); Ketones,Urine Negative (Negative); Leukocyte Esterase,Urine Trace (Negative); Nitrite,Urine Negative (Negative); Protein,Urine Negative (Neg-Trace); Specific Gravity,Urine 1.014 (1.010-1.025); Urobilinogen,Urine Normal (Normal)
[2017-09-03 20:09] LABS: Bacteria,Urine None Seen per hpf (None-Few); Hyaline Casts,Urine None Seen per lpf (None-Few); RBC,Urine 0-3 per hpf (0-3); Squamous Epithelial Cell,Urine Many per lpf (None-Few)
[2017-09-03 22:38] LABS: Creatinine,Urine 99 mg/dL; Microalbum/Creatinine Ratio,Ur 6 (0-30); Microalbumin,Urine 6 mg/L
[2017-09-03 22:39] LABS: Protein/Creatinine Ratio,Urine < 0.07 mg/mg (0-0.20)
[2017-09-04] MEDS: *HR* HYDROcodone/Acet 5/325 mg TABLET PO PRN ×4 (02:30→21:20)
[2017-09-04] MEDS: *HR* Morphine 2 MG/ML SYRINGE IVP PRN ×3 (06:32→19:58)
[2017-09-04 07:29] LABS: Basophils # 0.1 K/mcL (0.0-0.2); Basophils % 0.7 %; Eosinophils # 0.2 K/mcL (0.0-0.6); Hematocrit 36.7 % (35.3-44.9); Hemoglobin 11.8 g/dL (11.5-15.4); Immature Granulocytes % 0.4 % (0-4); Lymphocytes # 4.4 K/mcL (0.6-4.6); Lymphocytes % 53.1 %; Mean Corpuscular HGB Conc 32.2 g/dL (31.6-35.5); Mean Corpuscular Hemoglobin 29.6 pg (28.0-33.3); Mean Corpuscular Volume 92.2 fL (83.0-100.0); Mean Platelet Volume 10.2 fL (9.4-12.4); Monocytes # 0.6 K/mcL (0.0-1.3); Monocytes % 7.5 %; Platelet Count 266 K/mcL (140-400); Red Blood Count 3.98 M/mcL (3.82-4.97); Red Cell Distribution Width 12.8 % (11.5-14.5); Segmented Neutrophils % 36.3 %
[2017-09-04] MEDS: Gabapentin 300 MG CAPSULE PO SCH ×3 (07:48→19:59)
[2017-09-04] MEDS: Topiramate 25 MG TABLET PO SCH ×2 (07:48→20:05)
[2017-09-04] MEDS: Aspirin Enteric Coated 81 MG Tablet PO SCH (07:48)
[2017-09-04 07:49] LABS: BUN/Creatinine Ratio 13 (6-26); Blood Urea Nitrogen 16 mg/dL (7-20); Calcium 9.3 mg/dL (8.6-10.8); Carbon Dioxide 29 mEq/L (19-29); Chloride 107 mEq/L (98-109); Glucose 103 mg/dL (70-99); Osmolality,Calculated 293 (280-300); Sodium 141 mEq/L (136-145); eGFR For African Americans > 60 (> 60); eGFR For Non-African Americans 50 (> 60)
[2017-09-04 08:12] LABS: Thyroid Stimulating Hormone 1.117 mcIU/mL (0.350-4.840)
--- NOTE | 2017-09-04 08:43 | Nephrology Progress Note ---
Date of Encounter: 09/04/17 Time of Encounter: 08:37 - Assessment and Plan (1) Acute kidney insufficiency Current Visit: Yes Status: Acute 37-year-old female presented with a creatinine of 2.47, GFR of 22 and a BMI of 26. Her creatinine improved to 1.60 last evening with IV fluids roughly 2 L. Patient admits to a history of hematuria but denies any known chronic kidney disease, renal demise in the past. Currently without a urinary tract infection. - Suspect prerenal cause of her acute kidney injury but cannot rule out occasional nonobstructing nephrolithiasis. Urinalysis demonstrated 30 of protein. Patient does not have a history of diabetes. Retroperitoneal ultrasound: Unremarkable ultrasounds of the kidneys. 09/04: Renal function improving with creatinine of 1.20 down from 2.47 at admission. GFR 50. Patient was receiving IV fluid rehydration which was discontinued due to increased weight. Urinary output 1025 with positive fluid balance of 125 mL. Weight gain since admission 3 kg - Negative for urine eosinophilia, urine sodium 99, protein creatinine ratio less than 0.07 - Suspect BOB secondary to prerenal cause. Plan: - continue to hold Lisinopril and HCTZ - Avoid nephrotoxic medications and renally dose antibiotics - Monitor renal function with a.m. labs - Continue oral intake (2) History of hematuria Current Visit: Yes Status: Acute Patient states she roughly has 1.5-2 years of occasional hematuria roughly one time every 2 weeks currently without association of discomfort or pain. - Urinalysis from yesterday was negative for blood but did have some urine protein of around 30. - Nursing staff states that urine has been clear to yellow - No significant change in hemoglobin - abdominal CT without significant findings, no obstructive uropathy. - Repeat urinalysis negative for blood, protein (3) Dehydration Current Visit: Yes Status: Acute Patient presented with dehydration at the time of admission received 2 L of fluids with improvement in her acute kidney injury. - Continue to encourage oral intake - Renal function improving daily with fluid rehydration. (4) Hypokalemia Current Visit: Yes Status: Acute Potassium improves after oral KCl yesterday. Potassium 4.0 with some morning. - Magnesium 2.0 Plan: -Continue to monitor replace as necessary. Subjective Principal diagnosis: BOB Interval history: Miss Hanna 37-year-old female is seen in the patient bedside this morning. She is alert awake oriented interactive in no acute distress. She states that she still does not understand why there was blood in her urine intermittently. She denies any pain, discomfort, noticing any blood in her urine this morning or during urinary collection. She has any other significant symptoms or signs at this time. After discussion regarding her laboratory results she says she does not want to leave the hospital without having a answered to her intermittent hematuria. Objective - Vital Signs Vital signs: Vital Signs Temp Pulse Resp BP Pulse Ox 09/04/17 07:28 98.1 F 78 16 115/74 98 09/04/17 03:47 97.9 F 68 16 91/54 98 09/03/17 23:42 98.0 F 86 18 102/58 93 09/03/17 18:28 98.2 F 62 18 119/83 96 09/03/17 15:07 98.1 F 75 20 130/71 97 Intake and Output 09/03/17 09/04/17 09/04/17 23:59 07:59 15:59 Intake Total 150 / 150 Output Total 0 / 0 900 / 900 Balance 150 / 150 -900 / -900 Intake: Oral 150 / 150 Output: Urine 0 / 0 900 / 900 Other: Weight 145.56 kg Patient Weight 09/04/17 23:59 Weight 145.56 kg - General Appearance General appearance: Present: well-developed, well-nourished, appears started age Neck: Present: no JVD, no thyromegaly, no carotid bruit, supple Respiratory: Present: no kyphosis, no scoliosis Cardiology: Present: no murmurs, no rub, no gallops, edema (Trace edema bilateral lower extremities), regular rate, regular rhythm, normal S1, normal S2 Gastrointestinal: Present: normoactive bowel sounds, no tenderness Integumentary: Present: no rash, warm and dry Neurologic: Present: no focal deficit, no asterixis, alert and oriented x3, reflexes 2+ and symmetric, gait normal, strength 5/5 Musculoskeletal: Present: no deformities, no erythema, no cyanosis, no clubbing Psychiatric: Present: mood/affect appropriate, cooperative - Lab 09/04/17 07:03 09/04/17 07:03 Most recent lab results Calcium 9.3 mg/dL (8.6-10.8) 09/04/17 07:03 Magnesium 2.0 mg/dL (1.6-2.6) 09/03/17 06:41 Urine Creatinine 98 mg/dL 09/03/17 22:03 Urine Sodium 99.0 mEq/L 09/03/17 22:03 Urine Total Protein < 7 mg/dL (1-14) 09/03/17 22:03 Consult Discharge Plan - Plan Referrals: Mercedes Stephens, KAYLA [Primary Care Provider] -
[2017-09-04 11:23] LABS: C-Reactive Protein 5 mg/L (Less than 5)
--- NOTE | 2017-09-04 11:54 | Consult Note ---
Date of Encounter: 09/04/17 Time of Encounter: 11:51 Assessment & Recommendation (1) Anxiety Current visit: Yes Status: Acute Assessment & Recommendation: Currently prescribed Cymbalta for anxiety and depression. Dose could definitely be increased although she has not been on the medication that long and it may still need more time to take its full effect. Already linked with counseling services. She is still in the beginning stages of therapy and is only just starting to build a rapport with her therapist. Recommend she continue with the counseling. She would like something more for anxiety but she is not interested in anything that would make her drowzy. Most as needed medications would be sedating so suggest she either increase Cymbalta or consider adding scheduled Buspar. Buspar is typically dosed two to three times a day. Could start at 5mg BID and titrate up. Client is aware this medication will take time to work if she starts it. History of Present Illness Requesting Physician: Janelle Larios MD Reason for consult: med management History of present illness: Ms. Hanna is a 37 year old female who was admitted secondary to stroke like symptoms. Medical work-up has been negative thus far. Client admits she has been under a lot of stress and her clinical presentation may be more psychogenic in nature. Client is currently taking Cymbalta for depression and this is a relatively new medication. She has also started seeing someone for counseling but has only had three sessions thus far. She denies any SI. CC: Janelle Larios MD Past Med Surg Social Fam HX - Past Medical History Medical history: kidney stones, valvular heart disease, other - Past Psychiatric History Psychiatric history: Reports: anxiety, depression Family psychiatric history: Unknown Family History of Suicide: Unknown - Past Surgical History Surgical History: - Social History Smoking Status: Current every day smoker Smokeless Tobacco Status: No Alcohol use: none Drug use: none - Family History Mother Adopted: No Living Status: Still Living Hx Family Cardiac Disorders: Yes Hx Family Respiratory Disorders: No Hx Family Cancer: No Hx Family GI Disorders: No Hx Family Genitourinary Disorders: No Hx Family Endocrine Disorder: Yes Hx Family Musculoskeletal Disorders: No Hx Family Neuromuscular Disorders: No Hx Family Neurologic Disorders: No Hx Family HEENT Disorders: Yes Hx Family Autoimmune Disorders: No Hx Family Reproductive Disorders: No Hx Family Psychosocial Disorders: No Hx Family Medical Disorders: No Medications & Allergies Amoxicillin [Amoxil] 500 mg PO BID 09/02/17 [History] DULoxetine [Cymbalta] 20 mg PO BID 09/02/17 [History] Gabapentin [Neurontin] 300 mg PO TID 09/02/17 [History] Lisinopril/Hydrochlorothiazide [Zestoretic 20-12.5 mg Tablet] 1 each PO BID 08/11 [History] Topiramate [Topamax] 25 mg PO BID 09/02/17 [History] Trazodone HCl 100 mg PO HS 09/02/17 [History] 3 Allergy/AdvReac Type Severity Reaction Status Date / Time nitrofurantoin Allergy See Verified 03/29/16 19:50 [From Macrobid] Comments Review of Systems Constitutional: Denies: fever, chills, weakness, weight change Eyes: Denies: eye pain, vision change Ears, Nose, Throat: Denies: ear pain, throat pain, dental pain, hearing loss, congestion Cardiovascular: Denies: chest pain, palpitations, dyspnea on exertion Respiratory: Denies: cough, dyspnea, wheezes Gastrointestinal: Denies: abdominal pain, nausea, vomiting, diarrhea, constipation Genitourinary male: Denies: urgency, dysuria, frequency, genital lesions Genitourinary female: Denies: urgency, dysuria, frequency, abnormal menses, dyspareunia Musculoskeletal: Denies: joint swelling, joint pain Integumentary: Denies: rash, lesions, pruritus Neurological: Reports: weakness, numbness, other Psychiatric: Reports: depression, anxiety Endocrine: Denies: fatigue, heat or cold intolerance Hematologic/Lymphatic: Denies: easy bruising, lymphadenopathy Allergic/Immunologic: Denies: urticaria, itchy eyes Mental Status Exam Patient orientation: Yes Person, Yes Time, Yes Place Level of alertness: Alert Patient appearance: Appropriate Behavior: calm, cooperative Psychomotor activity: Normal Eye contact: Maintains Eye Contact Mood description: Anxious Affect description: congruent with mood Speech pattern: Normal rate, Normal rhythm, Normal tone Speech volume: Normal Thought process: Linear, Goal Oriented Thought content: No Suicidal ideation, No Homicidal ideation, No Overt delusions Perceptual disturbances: No Auditory hallucinations, No Visual hallucinations Attention span: Capable of Focused Attention Memory description: Grossly Intact Patient reliability: Reliable Historian Intelligence estimate: Average Judgment: Fair Insight: Partial Results - Vital Signs Vital signs: Temp Pulse Resp BP Pulse Ox 98.3 F 76 16 118/76 99 09/04/17 10:00 09/04/17 10:49 09/04/17 10:49 09/04/17 10:49 09/04/17 10:49 - Labs Labs: Laboratory Last Values WBC 8.4 K/mcL (4.3-11.1) 09/04/17 07:03 RBC 3.98 M/mcL (3.82-4.97) 09/04/17 07:03 Hgb 11.8 g/dL (11.5-15.4) 09/04/17 07:03 Hct 36.7 % (35.3-44.9) 09/04/17 07:03 MCV 92.2 fL (83.0-100.0) 09/04/17 07:03 MCH 29.6 pg (28.0-33.3) 09/04/17 07:03 MCHC 32.2 g/dL (31.6-35.5) 09/04/17 07:03 RDW 12.8 % (11.5-14.5) 09/04/17 07:03 Plt Count 266 K/mcL (140-400) 09/04/17 07:03 MPV 10.2 fL (9.4-12.4) 09/04/17 07:03 Immature Gran % 0.4 % (0-4) 09/04/17 07:03 Seg Neutrophils % 36.3 % 09/04/17 07:03 Lymphocytes % 53.1 % 09/04/17 07:03 Monocytes % 7.5 % 09/04/17 07:03 Eosinophils % 2.0 % 09/04/17 07:03 Basophils % 0.7 % 09/04/17 07:03 Neutrophils # 3.0 K/mcL (1.6-8.9) 09/04/17 07:03 Lymphocytes # 4.4 K/mcL (0.6-4.6) 09/04/17 07:03 Monocytes # 0.6 K/mcL (0.0-1.3) 09/04/17 07:03 Eosinophils # 0.2 K/mcL (0.0-0.6) 09/04/17 07:03 Basophils # 0.1 K/mcL (0.0-0.2) 09/04/17 07:03 ESR 28 mm/hr (0-15) H 09/04/17 07:03 PT 11.2 Seconds (9.4-12.1) 09/02/17 16:57 INR 1.0 09/02/17 16:57 APTT 30.3 Seconds (26.0-36.0) 09/02/17 16:57 Sodium 141 mEq/L (136-145) 09/04/17 07:03 Potassium 4.0 mEq/L (3.5-4.5) 09/04/17 07:03 Chloride 107 mEq/L (98-109) 09/04/17 07:03 Carbon Dioxide 29 mEq/L (19-29) 09/04/17 07:03 BUN 16 mg/dL (7-20) 09/04/17 07:03 Creatinine 1.20 mg/dL (0.57-1.11) H 09/04/17 07:03 Est GFR ( Amer) > 60 (> 60) 09/04/17 07:03 Est GFR (Non-Af Amer) 50 (> 60) L 09/04/17 07:03 BUN/Creatinine Ratio 13 (6-26) 09/04/17 07:03 Glucose 103 mg/dL (70-99) H 09/04/17 07:03 Calculated Osmolality 293 (280-300) 09/04/17 07:03 Calcium 9.3 mg/dL (8.6-10.8) 09/04/17 07:03 Magnesium 2.0 mg/dL (1.6-2.6) 09/03/17 06:41 Total Bilirubin 0.3 mg/dL (0.2-1.2) 09/03/17 06:41 AST 32 Units/L (5-34) 09/03/17 06:41 ALT 44 Units/L (0-55) 09/03/17 06:41 Alkaline Phosphatase 48 Units/L (38-126) 09/03/17 06:41 Troponin I 0.01 ng/mL (0-0.03) 09/03/17 06:41 C-Reactive Protein 5 mg/L (Less than 5) H 09/04/17 07:03 Serum Total Protein 6.2 g/dL (6.0-8.3) 09/03/17 06:41 Albumin 3.2 g/dL (3.5-5.0) L 09/03/17 06:41 Globulin 3.0 g/dL (2.4-3.5) 09/03/17 06:41 Albumin/Globulin Ratio 1.1 (1.1-2.2) 09/03/17 06:41 Triglycerides 323 mg/dL (< 150) H 09/03/17 06:41 Cholesterol 161 mg/dL (< 200) 09/03/17 06:41 LDL Cholesterol, Calc 72 mg/dL (0-99) 09/03/17 06:41 VLDL Cholesterol, Calc 65 mg/dL (< 31) H 09/03/17 06:41 HDL Cholesterol 24 mg/dL (40-59) L 09/03/17 06:41 Cholesterol/HDL Ratio 6.7 (0-4.9) H 09/03/17 06:41 TSH 1.117 mcIU/mL (0.350-4.840) 09/04/17 07:03 Random Cortisol 5.6 mcg/dl 09/04/17 07:03 Urine Color Yellow (Yellow) 09/03/17 20:02 Urine Clarity Clear (Clear) 09/03/17 20:02 Urine pH 6.0 pH Units (5.0-8.0) 09/03/17 20:02 Ur Specific [place] 1.014 (1.010-1.025) 09/03/17 20:02 Urine Protein Negative mg/dL (Neg-Trace) 09/03/17 20:02 Urine Glucose (UA) Normal mg/dL (Normal) 09/03/17 20:02 Urine Ketones Negative mg/dL (Negative) 09/03/17 20:02 Urine Blood Negative (Negative) 09/03/17 20:02 Urine Nitrite Negative (Negative) 09/03/17 20:02 Urine Bilirubin Negative (Negative) 09/03/17 20:02 Urine Urobilinogen Normal mg/dL (Normal) 09/03/17 20:02 Ur Leukocyte Esterase Trace (Negative) H 09/03/17 20:02 Urine Microscopic RBC 0-3 per hpf (0-3) 09/03/17 20:02 Urine Microscopic WBC 3-5 per hpf (0-3) H 09/03/17 20:02 Ur Eosinophil Smear 0 % (None Seen) 09/03/17 20:02 Ur Squamous Epith Cells Many per lpf (None-Few) H 09/03/17 20:02 Urine Bacteria None Seen per hpf (None-Few) 09/03/17 20:02 Hyaline Casts None Seen per lpf (None-Few) 09/03/17 20:02 Ur Culture Indicated? YES (NO) A 09/03/17 20:02 Urine Creatinine 98 mg/dL 09/03/17 22:03 Urine Microalbumin 6 mg/L 09/03/17 22:03 Microalb/Creat Ratio 6 (0-30) 09/03/17 22:03 Protein/Creatinin Ratio < 0.07 mg/mg (0-0.20) 09/03/17 22:03 Urine Sodium 99.0 mEq/L 09/03/17 22:03 Urine Total Protein < 7 mg/dL (1-14) 09/03/17 22:03 Urine Test Negative (Negative) 09/02/17 16:50 Salicylates < 5.0 mg/dL (15-30) L 09/02/17 16:57 Urine Opiates Screen Negative ng/mL (Vvchpv=377) 09/02/17 16:50 Acetaminophen < 1.0 mcg/mL (10-30) L 09/02/17 16:57 Ur Barbiturates Screen Negative ng/mL (Vqigto=922) 09/02/17 16:50 Ur Phencyclidine Scrn Negative ng/mL (Cutoff=25) 09/02/17 16:50 Ur Amphetamines Screen Negative ng/mL (Noqazj=1538) 09/02/17 16:50 U Benzodiazepines Scrn Negative ng/mL (Xrjogk=131) 09/02/17 16:50 Urine Cocaine Screen Negative ng/mL (Cutoff= 300) 09/02/17 16:50 U Marijuana (THC) Screen Negative ng/mL (Cutoff = 50) 09/02/17 16:50 Ethyl Alcohol < 10 mg/dL (0-10) 09/02/17 16:57 - Impressions Impressions Brain MRI 09/02/17 20:14 IMPRESSION: Unremarkable MRI of the brain. No acute intracranial abnormality. D/ : / 09/02/2017 21:59:56 Jose Cage MD / Tierney Esteves Interpreting Provider: Jose Cage MD Abdomen/Pelvis CT 09/03/17 17:30 IMPRESSION: No evidence of obstructive uropathy. D/ / Adelfo Jenkins MD / Adelfo Jenkins MD Interpreting Provider: Adelfo Jenkins MD Consult Discharge Plan - Plan Referrals: Mercedes Stephens, REEL MAN [Primary Care Provider] -
[2017-09-04] MEDS: Amoxicillin 500 MG CAPSULE PO SCH ×2 (12:40→21:21)
--- NOTE | 2017-09-04 15:22 | Neurology Progress Note ---
Date of Encounter: 09/04/17 Time of Encounter: 13:30 Assessment and Plan (1) Stress reaction causing mixed disturbance of emotion and conduct Current Visit: Yes Status: Acute Patient presents to [facility] after reports of neurologic symptoms including difficulty with speech and word finding. Physical exam showed decreased upper and lower extremity strength on the left, was unclear how much patient was trying. Head CT, MRI, and echocardiogram were grossly normal without abnormal findings. Patient reported event does not appear to be vascular. Lack of incontinence or tongue lacerations suggest against seizure. Patient does admit to significant stress in her life currently. Stroke workup has been negative so far no additional workup needed We will obtain EEG Likely prevent stress-induced, appreciate psychiatry recommendations Subjective Principal diagnosis: BOB Interval history: Patient reports having no improvement in her symptoms. She continues to state that she is weak on her left side. She also reports having new lip burning. She is also now reporting having some left flank pain that feels like a contraction and burning sensation. Objective - Constitutional Vitals: Temp Pulse Resp BP Pulse Ox 98.3 F 76 16 118/76 99 09/04/17 10:00 09/04/17 10:49 09/04/17 10:49 09/04/17 10:49 09/04/17 10:49 General appearance: Present: A&O X 3, pleasant, no acute distress, obese, answers questions appropriately - Head Head exam: Present: atraumatic, normocephalic - Eye Eye exam: Present: EOMI, PERRL, sclera anicteric - Neurological Exam Motor Examination: Present: other Motor examination - right side: 5/5: deltoids, biceps, triceps, veterinary pharmacologist, tibialis Anterior, quadriceps, toe extension (EHL), plantarflexion Motor examination - left side: 4/5: deltoids, biceps, triceps, veterinary pharmacologist, quadriceps , tibialis Anterior, toe extension (EHL), plantarflexion Sensation intact: Present: intact Reflexes: Brachioradialis: 2+, Patella: 1+, Achilles: 1+ Mental Status Examination: Present: awake, alert, oriented to person, oriented to place, oriented to time, follows commands appropriately, answers questions appropriately Cranial nerve examination: Present: PERRL, EOMI, sensory to face intact, no facial asymmetry is present, hearing is intact symmetrically, tongue protrudes midline Results - Laboratory Findings CBC and BMP: 09/04/17 07:03 09/04/17 07:03 Abnormal lab findings: Abnormal lab results ESR 28 mm/hr (0-15) H 09/04/17 07:03 Creatinine 1.20 mg/dL (0.57-1.11) H 09/04/17 07:03 Est GFR (Non-Af Amer) 50 (> 60) L 09/04/17 07:03 Glucose 103 mg/dL (70-99) H 09/04/17 07:03 C-Reactive Protein 5 mg/L (Less than 5) H 09/04/17 07:03 Albumin 3.2 g/dL (3.5-5.0) L 09/03/17 06:41 Triglycerides 323 mg/dL (< 150) H 09/03/17 06:41 VLDL Cholesterol, Calc 65 mg/dL (< 31) H 09/03/17 06:41 HDL Cholesterol 24 mg/dL (40-59) L 09/03/17 06:41 Cholesterol/HDL Ratio 6.7 (0-4.9) H 09/03/17 06:41 Ur Leukocyte Esterase Trace (Negative) H 09/03/17 20:02 Urine Microscopic WBC 3-5 per hpf (0-3) H 09/03/17 20:02 Ur Squamous Epith Cells Many per lpf (None-Few) H 09/03/17 20:02 Ur Culture Indicated? YES (NO) A 09/03/17 20:02 Salicylates < 5.0 mg/dL (15-30) L 09/02/17 16:57 Acetaminophen < 1.0 mcg/mL (10-30) L 09/02/17 16:57 Consult Discharge Plan - Plan Referrals: Mercedes Stephens, P[facility] [Primary Care Provider] -
--- NOTE | 2017-09-04 16:27 | Internal Med Progress Note ---
<MalsophiaKimberly stoll - Last Filed: 09/04/17 16:25> Date of Encounter: 09/04/17 Time of Encounter: 13:00 - Assessment and plan (1) Speech abnormality Current Visit: Yes Status: Acute Assessment and plan: Patient's workup for CVA largely negative other than a carotid duplex ultrasound showing 60-79% stenosis in the left. -Patient started on an antiplatelet aspirin 81 mg. -Neuro following. We will follow their recommendations. -EKG normal sinus rhythm, no ST T-wave changes. -Started on Lipitor yesterday for hyper triglyceridemia. -Consult to vascular. Await recommendations. Qualifiers: Qualified Code(s): R47.9 - Unspecified speech disturbances (2) Weight loss Current Visit: Yes Status: Acute Assessment and plan: Patient with an unexplained 37 pound weight loss and reported hematuria as well as mild left-sided flank pain. -Abdominopelvic CT scan normal. -No signs of hematuria at this visit. -Chest CT normal. -We will order GOLD. (3) Stress reaction causing mixed disturbance of emotion and conduct Current Visit: Yes Status: Acute Assessment and plan: consult psychiatry. -FU their recommendations. (4) Acute kidney insufficiency Current Visit: Yes Status: Acute Assessment and plan: Patient with worsening creatinine and intermittent hematuria. Never been seen by a employment law specialist. -Patient's creatinine trended down yesterday and stable today after IV fluids and discontinuation of lisinopril and HCTZ. -Blood pressure trending on the low side. -Continue IV fluids. -FU with nephrology as outpatient. (5) Anxiety Current Visit: Yes Status: Acute Assessment and plan: Patient heard loudly crying throughout the evening. -FU psych recommendations. (6) Dehydration Current Visit: Yes Status: Acute Assessment and plan: IVF - Subjective Interval history: Ms. Hanna is a 37-year-old female with past medical history of hypertension, morbid obesity, anxiety, and chronic kidney disease who presented to the emergency department yesterday for evaluation of intermittent difficulty with speech that began prior to arrival. Patient's workup for CVA grossly normal. This morning, patient says she is feeling lightheaded and weak. She states she has had a 39 pound weight loss in the last month. She reports hematuria, although the nurse has not seen any in her hat. The patient states she is under significant amount of stress and is seen staring off into space during my visit. Patient continues to report 6 out of 10 left-sided flank pain which feels crampy and dull. She says it feels like a kidney stone that she had 15 years prior or similar to a labor pain. She reports minimal improvement of her symptoms from yesterday. - Constitutional Vitals: Temp Pulse Resp BP Pulse Ox 98.3 F 76 16 118/76 99 09/04/17 10:00 09/04/17 10:49 09/04/17 10:49 09/04/17 10:49 09/04/17 10:49 General appearance: Present: A&O X 3, no acute distress, answers questions appropriately - Respiratory Respiratory exam: Present: CTAB. Absent: accessory muscle use, rales, rhonchi, wheezes - Cardiovascular Cardiovascular exam: Present: RRR, +S1, +S2. Absent: diastolic murmur, gallop, rubs, systolic murmur - GI/Abdominal GI/Abdominal exam: Present: normal bowel sounds, soft, no peritoneal signs. Absent: distended, tenderness - Extremities Exam Extremities exam: Present: warm, radial pulses palpable and symmetrical. Absent : calf tenderness, cyanotic, pedal edema Internal Medicine: Result - Labs CBC & Chem 7: 09/04/17 07:03 09/04/17 07:03 Labs: Short CBC 09/04/17 Range/Units 07:03 WBC 8.4 (4.3-11.1) K/mcL Hgb 11.8 (11.5-15.4) g/dL Hct 36.7 (35.3-44.9) % Plt Count 266 (140-400) K/mcL Neutrophils # 3.0 (1.6-8.9) K/mcL BMP 09/04/17 07:03 Sodium 141 Potassium 4.0 Chloride 107 Carbon Dioxide 29 BUN 16 Creatinine 1.20 H Glucose 103 H Calcium 9.3 Urine 09/03/17 Range/Units 20:02 Urine Color Yellow (Yellow) Urine Clarity Clear (Clear) Urine pH 6.0 (5.0-8.0) pH Units Ur Specific [place] 1.014 (1.010-1.025) Urine Protein Negative (Neg-Trace) mg/dL Urine Glucose (UA) Normal (Normal) mg/dL - ABG Interpretation ABG results: PT/INR, D-dimer PT 11.2 Seconds (9.4-12.1) 09/02/17 16:57 - Impressions Impressions Abdomen/Pelvis CT 09/03/17 17:30 IMPRESSION: No evidence of obstructive uropathy. D/ / Adelfo Jenkins MD / Adelfo Jenkins MD Interpreting Provider: Adelfo Jenkins MD Chest CT 09/04/17 11:42 IMPRESSION: No abnormality in the chest. No evidence of malignancy in the chest. D/ / 09/04/2017 13:08:34 Darrell Swartz MD / elie Interpreting Provider: Darrell Swartz MD Consult Discharge Plan - Plan Referrals: Mercedes Stephens, CHUTE OPERATOR [Primary Care Provider] - <Janelle Larios - Last Filed: 09/04/17 16:49> Date of Encounter: 09/04/17 - Constitutional Vitals: Temp Pulse Resp BP Pulse Ox 98.3 F 76 16 118/76 99 09/04/17 10:00 09/04/17 10:49 09/04/17 10:49 09/04/17 10:49 09/04/17 10:49 Internal Medicine: Result - Labs CBC & Chem 7: 09/04/17 07:03 09/04/17 07:03 Labs: Short CBC 09/04/17 Range/Units 07:03 WBC 8.4 (4.3-11.1) K/mcL Hgb 11.8 (11.5-15.4) g/dL Hct 36.7 (35.3-44.9) % Plt Count 266 (140-400) K/mcL Neutrophils # 3.0 (1.6-8.9) K/mcL BMP 09/04/17 07:03 Sodium 141 Potassium 4.0 Chloride 107 Carbon Dioxide 29 BUN 16 Creatinine 1.20 H Glucose 103 H Calcium 9.3 Urine 09/03/17 Range/Units 20:02 Urine Color Yellow (Yellow) Urine Clarity Clear (Clear) Urine pH 6.0 (5.0-8.0) pH Units Ur Specific [place] 1.014 (1.010-1.025) Urine Protein Negative (Neg-Trace) mg/dL Urine Glucose (UA) Normal (Normal) mg/dL - ABG Interpretation ABG results: PT/INR, D-dimer PT 11.2 Seconds (9.4-12.1) 09/02/17 16:57 - Impressions Impressions Abdomen/Pelvis CT 09/03/17 17:30 IMPRESSION: No evidence of obstructive uropathy. D/ / Adelfo Jenkins MD / Adelfo Jenkins MD Interpreting Provider: Adelfo Jenkins MD Chest CT 09/04/17 11:42 IMPRESSION: No abnormality in the chest. No evidence of malignancy in the chest. D/ / 09/04/2017 13:08:34 [facility] Sw[facility]z [facility] Interpreting Provider: Darrell Swartz MD - Attending Attestation I saw and examined the patient independently. I have discussed with resident Dr Wills regarding the management plan, agree with the documentation. Patient is still weak, looks anxious and depressed. Psychiatry consult appreciated. Renal function has improved. So far workup for body with loss are unremarkable, which include abdominal/pelvis CT and chest a CT, TSH, morning cortisol. Patient has no anemia, denies abdominal pain or change of bowel habit. Will adjust psych medication per psychiatry consult. Continue closely monitor patient. Carotid duplex shows stenosis on left side, will consult vascular surgery for further management
--- NOTE | 2017-09-04 16:33 | EEG/EMG/Oth Biometrics Report ---
EEG Procedure Report Date of procedure: 09/04/17 EEG Procedure: Routine EEG Procedure Note: Routine 18-channel digital EEG was obtained to rule out any seizure activity or focal abnormalities. FINDINGS: Background rhythm during awake stage shows well-organized, well- developed, average voltage 8 to 9 hertz alpha activity in the posterior regions. It blocks with eye opening and it is bilaterally synchronous and symmetrical. No [id number] discharges or any lateralizing abnormalities are seen. Photic stimulation did not produce any abnormalities. . No abnormalities were found during the procedure. Intermittent EMG artifacts were seen. Stage II sleep was not achieved. IMPRESSION: Normal awake study. No epileptiform discharges or any other paroxysmal activities or focal abnormalities seen. Clinical correlation is recommended.
--- NOTE | 2017-09-04 20:08 | Electrocardiograph Report ---
[address] [place] [address] Test Date: 2017-09-03 Pat Name: Edna Hanna Department: 114 Room: 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
[2017-09-04] MEDS: traZODone 50 MG TABLET PO SCH (21:20)
--- NOTE | 2017-09-04 22:35 | Vascular/Endovasc Consult Note ---
Date of Encounter: 09/04/17 Time of Encounter: 22:32 Assessment and Plan (1) Carotid stenosis, left Current Visit: Yes Status: Acute Patient has new finding of distal left internal carotid artery stenosis by duplex scanning. She has not had any other vascular imaging studies. The patient 's symptoms however do not conform with this stenosis. The patient is a right- handed individual. I reviewed the results with the patient. I discussed the risks for stroke. I suggested that no intervention or further diagnostic testing of the left carotid artery is necessary at this time. I recommended that she be alert to any further neurologic disturbances and that she follow up in the vascular surgery clinic in 1 year with a duplex scan prior to that office visit. All questions were answered. The patient understands the recommendations made to her. - History of Present Illness Consult date: 09/04/17 Consult reason: Abnormal carotid artery duplex scan Chief complaint: Expressive aphasia, dizziness, and left-sided weakness History of present illness: Ms. Hanna is a 37 year old female Who was admitted approximately 2 days ago because of expressive aphasia and dizziness. While she was here at hospital she is developed left-sided weakness. The patient states her neurologic symptoms have improved. As part of her evaluation she is undergone consultation with neurology and psychiatry. She has had a number of imaging studies performed including a brain scan and a CT scan as well as a carotid duplex scan. She also had an EEG study performed earlier today. The brain imaging studies have demonstrated no signs of stroke or tumor or hydrocephalus. The duplex scan was abnormal in that it showed a 6079% stenosis in the distal left internal carotid artery. The peak systolic velocity was approximately 170-180 cm/s with a end-diastolic velocity of approximately 70 cm/s. The ICA to CCA ratio was less than 2 however. The right carotid system showed no significant stenosis and was found to be essentially normal The patient states that she had a grandfather that had a stroke in in his 50s and a grandmother who had a stroke in her 70s. The patient has not had a carotid duplex scan performed before this time. Past Med Surg Social Fam HX - Past Medical History Medical history: kidney stones, valvular heart disease, other Psychiatric history: anxiety, depression - Past Surgical History Surgical History: - Social History Smoking Status: Current every day smoker Smokeless Tobacco Status: No Alcohol use: none Drug use: none - Family History Mother Adopted: No Living Status: Still Living Hx Family Cardiac Disorders: Yes Hx Family Respiratory Disorders: No Hx Family Cancer: No Hx Family GI Disorders: No Hx Family Genitourinary Disorders: No Hx Family Endocrine Disorder: Yes Hx Family Musculoskeletal Disorders: No Hx Family Neuromuscular Disorders: No Hx Family Neurologic Disorders: No Hx Family HEENT Disorders: Yes Hx Family Autoimmune Disorders: No Hx Family Reproductive Disorders: No Hx Family Psychosocial Disorders: No Hx Family Medical Disorders: No Medications and Allergies Amoxicillin [Amoxil] 500 mg PO BID 09/02/17 [History] DULoxetine [Cymbalta] 20 mg PO BID 09/02/17 [History] Gabapentin [Neurontin] 300 mg PO TID 09/02/17 [History] Lisinopril/Hydrochlorothiazide [Zestoretic 20-12.5 mg Tablet] 1 each PO BID 08/11 [History] Topiramate [Topamax] 25 mg PO BID 09/02/17 [History] Trazodone HCl 100 mg PO HS 09/02/17 [History] 3 Allergy/AdvReac Type Severity Reaction Status Date / Time nitrofurantoin Allergy See Verified 03/29/16 19:50 [From Macrobid] Comments All Systems Review: A 10-system review of systems was performed and is negative for pertinent findings except as documented above in the HPI. Exam Vital Signs, Last 4 Hours Temp Pulse Resp BP Pulse Ox 09/04/17 19:08 99.4 F 75 18 123/77 97 General: Present: Conversant, No Apparent Distress, Other (Morbid obesity) HEENT: Present: Atraumatic, Normocephaly, Trachea midline Neck: Absent: JVD, Lymphadenopathy, Left Carotid bruit, Right Carotid bruit, Midline deformity, Tracheal deviation Cardiac: Present: Reg Rate and Rhythm, Normal S1 and S2, No Murmur Lungs: Present: Normal Breath Sounds, No Wheeze, Rales, Rhonchi Neuro: Present: Alert and responsive, No focal deficits noted, Cranial nerves grossly intact Abdomen: Present: Soft, Non-tender Vascular: Present: Normal capillary refill Skin: Present: No rashes noted on visualized skin Consult Discharge Plan - Plan Referrals: Mercedes Stephens CNP [Primary Care Provider] - Ezekiel Steward MD [Partnered Physician] - (Follow-up with Dr. Steward in 1 year in outpatient vascular surgery clinic. Repeat carotid artery duplex scan prior to office visit.)
[2017-09-05 04:58] LABS: Basophils # 0.1 K/mcL (0.0-0.2); Basophils % 0.8 %; Eosinophils # 0.2 K/mcL (0.0-0.6); Eosinophils % 2.1 %; Hematocrit 36.2 % (35.3-44.9); Hemoglobin 11.7 g/dL (11.5-15.4); Immature Granulocytes % 0.3 % (0-4); Lymphocytes # 4.2 K/mcL (0.6-4.6); Mean Corpuscular HGB Conc 32.3 g/dL (31.6-35.5); Mean Corpuscular Hemoglobin 30.3 pg (28.0-33.3); Mean Corpuscular Volume 93.8 fL (83.0-100.0); Monocytes # 0.7 K/mcL (0.0-1.3); Monocytes % 7.8 %; Neutrophils # 3.8 K/mcL (1.6-8.9); Platelet Count 264 K/mcL (140-400); Red Blood Count 3.86 M/mcL (3.82-4.97); Red Cell Distribution Width 12.5 % (11.5-14.5)
[2017-09-05] MEDS: *HR* HYDROcodone/Acet 5/325 mg TABLET PO PRN ×2 (05:07→09:16)
[2017-09-05 05:11] LABS: BUN/Creatinine Ratio 16 (6-26); Blood Urea Nitrogen 18 mg/dL (7-20); Calcium 9.1 mg/dL (8.6-10.8); Carbon Dioxide 27 mEq/L (19-29); Chloride 106 mEq/L (98-109); Glucose 113 mg/dL (70-99); Osmolality,Calculated 295 (280-300); Potassium 3.6 mEq/L (3.5-4.5); Sodium 141 mEq/L (136-145); eGFR For African Americans > 60 (> 60); eGFR For Non-African Americans 53 (> 60)
[2017-09-05 08:44] VITALS: BP 108/69
[2017-09-05] MEDS ORDERED: Lidocaine -MPF 1% 5 ML AMPUL INFILT ONE (09:07)
[2017-09-05] MEDS: Topiramate 25 MG TABLET PO SCH (09:16)
[2017-09-05] MEDS: Gabapentin 300 MG CAPSULE PO SCH (09:17)
[2017-09-05] MEDS: Aspirin Enteric Coated 81 MG Tablet PO SCH (09:17)
[2017-09-05] MEDS: Amoxicillin 500 MG CAPSULE PO SCH (09:17)
--- NOTE | 2017-09-05 09:52 | Neurology Progress Note ---
Date of Encounter: 09/08/17 Time of Encounter: 07:35 Assessment and Plan (1) Speech abnormality Status: Acute Patient is back to her baseline no evidence of any aphasia or any other neurological deficit on her examination Workup including MRI of the brain and EEG has been negative. Qualifiers: Speech disturbance type: aphasia Qualified Code(s): R47.01 - Aphasia (2) Anxiety Status: Acute (3) Carotid stenosis, left Status: Acute Patient has been evaluated by vascular surgery medical treatment recommended with follow-up in 1 year with imaging studies. She had been on aspirin suggested that she should continue along with the statin. Patient is aware if she develop any new or symptoms she should go to the emergency room. Continue on aspirin with the statin follow-up with vascular surgery as recommended. Subjective Principal diagnosis: BOB Interval history: This is stable no other focal neurological deficit. MRI of the brain reported as negative. EEG was also negative Carotid duplex did show an evidence of left ICA stenosis up to 60-79%. Vascular surgery has evaluated the patient suggested medical treatment with follow-up in one year Objective - Constitutional Vitals: Temp Pulse Resp BP Pulse Ox 98.7 F 62 16 108/69 96 09/05/17 08:24 09/05/17 08:24 09/05/17 08:24 09/05/17 08:24 09/05/17 08:24 General appearance: Present: A&O X 3, pleasant, no acute distress, obese, answers questions appropriately - Neurological Exam Motor Examination: Present: other Motor examination - left side: 4/5: deltoids, biceps, triceps, classroom teacher, quadriceps , tibialis Anterior, toe extension (EHL), plantarflexion Sensation intact: Present: intact Mental Status Examination: Present: awake, alert, oriented to person, oriented to place, oriented to time, follows commands appropriately, answers questions appropriately Cranial nerve examination: Present: PERRL, EOMI, sensory to face intact, no facial asymmetry is present, hearing is intact symmetrically, tongue protrudes midline Results - Laboratory Findings CBC and BMP: 09/05/17 04:41 09/05/17 04:41 Abnormal lab findings: Abnormal lab results ESR 28 mm/hr (0-15) H 09/04/17 07:03 Creatinine 1.14 mg/dL (0.57-1.11) H 09/05/17 04:41 Est GFR (Non-Af Amer) 53 (> 60) L 09/05/17 04:41 Glucose 113 mg/dL (70-99) H 09/05/17 04:41 C-Reactive Protein 5 mg/L (Less than 5) H 09/04/17 07:03 Albumin 3.2 g/dL (3.5-5.0) L 09/03/17 06:41 Triglycerides 323 mg/dL (< 150) H 09/03/17 06:41 VLDL Cholesterol, Calc 65 mg/dL (< 31) H 09/03/17 06:41 HDL Cholesterol 24 mg/dL (40-59) L 09/03/17 06:41 Cholesterol/HDL Ratio 6.7 (0-4.9) H 09/03/17 06:41 Ur Leukocyte Esterase Trace (Negative) H 09/03/17 20:02 Urine Microscopic WBC 3-5 per hpf (0-3) H 09/03/17 20:02 Ur Squamous Epith Cells Many per lpf (None-Few) H 09/03/17 20:02 Ur Culture Indicated? YES (NO) A 09/03/17 20:02 Salicylates < 5.0 mg/dL (15-30) L 09/02/17 16:57 Acetaminophen < 1.0 mcg/mL (10-30) L 09/02/17 16:57 Consult Discharge Plan - Plan Instructions: Peripheral Vascular Disorders (DC), Anxiety (DC) Additional Instructions: Please follow-up with your primary care provider in the next week regarding your hospital stay including your recent weight loss. We have stopped your hydrochlorothiazide and lisinopril medications for high blood pressure. This needs to be discussed with your primary care provider. We also ordered an GOLD test while you were in the hospital as well as a 24 hour urine creatinine, which needs to be followed up with your primary care provider. It is recommended that you follow-up with a bereavement coordinator, and we gave you the information for Dr. Levin at your request. Please follow-up with psychiatry at [facility]. Please reschedule your appointment that was scheduled for today. You are being giving a prescription for atorvastatin which is for elevated triglycerides in your blood. You are also being given a prescription for aspirin to help prevent any potential further return of your stroke-like symptoms. Further, per psychiatry recommendations, you are being sent home with a prescription for BuSpar to be taken twice a day. Additionally, as we discussed, you need to follow up your carotid artery stenosis with Dr. Steward in 1 year. Referrals: Mercedes Stephens CNP [Primary Care Provider] - 09/20/17 7:30 am Marco Hui MD [Partnered Physician] - Ezekiel Ferguson MD [Partnered Physician] - 09/11/17 7:45 am Ezekiel Steward MD [Partnered Physician] - (Follow-up with Dr. Steward in 1 year in outpatient vascular surgery clinic. Repeat carotid artery duplex scan prior to office visit.) Prescriptions: Aspirin Enteric Coated [Aspirin EC] 81 mg PO DAILY #30 tablet. Atorvastatin [Lipitor] 40 mg PO HS #30 tablet Buspirone HCl [Buspar] 5 mg PO BID #60 tablet Furosemide [Lasix] 20 mg PO 3XW #3 tablet
--- NOTE | 2017-09-05 11:21 | Discharge Summary ---
<Kimberly Lala H - Last Filed: 09/05/17 11:43> Date of Encounter: 09/05/17 Time of Encounter: 10:00 - Discharge Diagnosis (1) Speech abnormality Priority: Primary Status: Acute Qualifiers: Speech disturbance type: aphasia Qualified Code(s): R47.01 - Aphasia (2) Weight loss Priority: Secondary Status: Acute (3) Stress reaction causing mixed disturbance of emotion and conduct Priority: Secondary Status: Acute (4) Acute kidney insufficiency Priority: Secondary Status: Acute (5) Anxiety Priority: Secondary Status: Acute (6) Dehydration Priority: Secondary Status: Acute - Discharge Medications Prescriptions: Aspirin Enteric Coated [Aspirin EC] 81 mg PO DAILY #30 tablet. Atorvastatin [Lipitor] 40 mg PO HS #30 tablet Buspirone HCl [Buspar] 5 mg PO BID #60 tablet Furosemide [Lasix] 20 mg PO 3XW #3 tablet Home Medications: Amoxicillin [Amoxil] 500 mg PO BID 09/02/17 [History] DULoxetine [Cymbalta] 20 mg PO BID 09/02/17 [History] Gabapentin [Neurontin] 300 mg PO TID 09/02/17 [History] Topiramate [Topamax] 25 mg PO BID 09/02/17 [History] Trazodone HCl 100 mg PO HS 09/02/17 [History] Aspirin Enteric Coated [Aspirin EC] 81 mg PO DAILY #30 tablet. 09/05/17 [Rx] Atorvastatin [Lipitor] 40 mg PO HS #30 tablet 09/05/17 [Rx] Buspirone HCl [Buspar] 5 mg PO BID #60 tablet 09/05/17 [Rx] Furosemide [Lasix] 20 mg PO 3XW #3 tablet 09/05/17 [Rx] Allergies/Adverse Reactions: 3 Allergy/AdvReac Type Severity Reaction Status Date / Time nitrofurantoin Allergy See Verified 03/29/16 19:50 [From Macrobid] Comments Procedures/tests Complete & Pending: Procedures Performed prior 72 hours Category Date Time Status CT abd pelvis wo no iv no oral [CT] Routine Cat Scan 09/03/17 17:[address] chest w/o contrast [CT chest wo con] [CT] Routine Cat Scan 09/04/17 11:42 Draft US retroperitoneal limited [US] Stat Exams 09/02/17 20:13 Completed MR head/brain wo con [MR] Stat MRI 09/02/17 20:14 Completed ECG 12 lead ECG [ECG] Routine Y 09/03/17 12:48 Completed EV carotid duplex imaging BI Stat Y 09/03/17 20:14 Completed EV echocardiogram w enhance Stat Y 09/03/17 20:14 Completed Date of admission: 09/02/17 19:56 Primary care physician: Mercedes Stephens CNP Consults: 09/02/17 23:06 Consult to Nutrition [CONS] Routine Comment: Consulting Provider: NUTRITION Reason for Dietary Consult: Diet Education 09/03/17 11:27 Consult to Occupational Therapy [CONS] Routine Comment: Evaluate, develop and implement POC Reason for Consult: deconditioned Consult to Physical Therapy [CONS] Routine Comment: Evaluate, develop and implement POC Reason for Consult: deconditioned 09/03/17 15:01 Consult to Psychiatry [CONS] Routine Consulting Provider: Psychiatry Ivette Reason for Consult: major depress, make medication adjustment suggestions Call Completed: Yes 09/03/17 15:26 Consult to Nephrology [CONS] Routine Consulting Provider: Kidney Ivette/THAO/GEORGE/KWABENA Reason for Consult: CKD stage III, worsening Cr over past few months, she is concerned about chronic intermittent hematuria. doesn't have medical consultant. Call Completed: Yes 09/03/17 16:15 Consult to Interpret Exam [CONS] Routine Consulting Provider: Everton Boone I Consult to Interpret Exam: Interpret EEG 09/03/17 16:34 Consult to Building Performance Specialist [CONS] Routine Reason for SW Consult: Discharge planning 09/04/17 11:42 Consult to Vascular Surgery [CONS] Routine Consulting Provider: Vascular Surgery Harrison Reason for Consult: possible carotid endarterectomy- stroke like symptoms Call Completed: No - Patient Status Disposition: Home, Self-Care Condition: Good Overall status at discharge: patient is progressing back to baseline - Discharge Instructions Instructions: Peripheral Vascular Disorders (DC), Anxiety (DC) Follow Up With: Mercedes Stephens CNP [Primary Care Provider] - 09/20/17 7:30 am Marco Hui MD [Partnered Physician] - Ezekiel Ferguson MD [Partnered Physician] - 09/11/17 7:45 am Ezekiel Steward MD [Partnered Physician] - (Follow-up with Dr. Steward in 1 year in outpatient vascular surgery clinic. Repeat carotid artery duplex scan prior to office visit.) Additional Instructions: Please follow-up with your primary care provider in the next week regarding your hospital stay including your recent weight loss. We have stopped your hydrochlorothiazide and lisinopril medications for high blood pressure. This needs to be discussed with your primary care provider. We also ordered an GOLD test while you were in the hospital as well as a 24 hour urine creatinine, which needs to be followed up with your primary care provider. It is recommended that you follow-up with a medical consultant, and we gave you the information for Dr. Levin at your request. Please follow-up with psychiatry at [facility]. Please reschedule your appointment that was scheduled for today. You are being giving a prescription for atorvastatin which is for elevated triglycerides in your blood. You are also being given a prescription for aspirin to help prevent any potential further return of your stroke-like symptoms. Further, per psychiatry recommendations, you are being sent home with a prescription for BuSpar to be taken twice a day. Additionally, as we discussed, you need to follow up your carotid artery stenosis with Dr. Steward in 1 year. - Diet and Activity Activity: increase activity as tolerated Diet: advance to your usual diet Hospital course: Ms. Hanna is a 37 year old female with past medical history of hypertension, and morbid obesity, anxiety, and CKD2 who presented to the emergency room for evaluation of intermittent confusion and intermittent difficulty with speech which started just prior to arrival. Patient received a CT of her head which did not show any acute hemorrhage or pathology. She did mention she was under a lot of stress at home lately. Upon admission to the hospital, patient seemed almost detached and somnolent. She was heard crying loudly multiple times during her hospital stay. She disclosed to nursing staff that her had recently had an affair. Patient was worked up extensively for expressive aphasia. An extensive workup was performed to rule out CVA given her morbid obesity, hypertension, and family history of CVA. Patient was placed on a monitor with every 4 hour neuro checks. An MRI of her brain showed no abnormalities. A 2-D echo showed nothing remarkable. A carotid Doppler ultrasound showed stenosis in her left carotid between 60 and 79%. We subsequently consulted vascular surgery who noted that the Doppler findings were not consistent with her presenting complaints. They recommended follow-up with them in 1 year with a repeat carotid Doppler ultrasound done before appointment. Neurology was consulted. Their workup including MRI and EEG was negative. Patient's ECG showed normal sinus rate with no ST T-wave changes. We did decide to start the patient on aspirin 81 mg daily. Lipid panel showed elevated triglycerides, and due to her comorbidities, we started her on atorvastatin daily. Patient was found to have a creatinine of 2.47 on on admission which was indicative of an BOB. We held the patient's home dose of lisinopril and hydrochlorothiazide, gave IV fluids, and encouraged good oral hydration. Patient's creatinine trended down throughout her hospital course and today it was 1.14. We did consult nephrology as patient has a history of chronic kidney disease and reported hematuria, however, we did not visualize gross blood in her urine and urinalysis did not show any blood and only a small number of RBCs. Patient received a retroperitoneal ultrasound due to left- sided flank pain. This was unremarkable. Nephrology ordered a urine creatinine which can be followed up with nephrology or the patient's primary care provider. Patient also reported a 39 pound weight loss over the last month during this hospitalization. We obtained an abdominopelvic CT scan as well as a chest CT scan without contrast to rule out any overt malignancy. Our findings were inconclusive. We instructed the patient to follow this up with her primary care provider. In addition to starting the patient on aspirin and atorvastatin, we additionally added BuSpar. Early in the hospital course we consulted psychiatry. They recommended adding twice-daily BuSpar which we have discharged the patient home with. We have also given her a 3 day supply of Lasix 20 mg as patient complains of diffuse swelling. We have ordered outpatient labs for a BMP in 1 week. Patient reports she had a psychiatry appointment today which he will reschedule. We also ordered an GOLD which we will have the patient follow-up with her primary care provider. We spent over 40 minutes with the patient addressing her questions and explaining the plan. She expressed understanding of the plan for further workup of her unexplained weight loss and kidney disease as an outpatient. Patient will follow-up her appointments with nephrology, PCP, psychiatry, and vascular surgery. - Time Spent with Patient Total time spent providing and/or coordinating discharge services: Greater than 30 minutes (40 minutes) - Constitutional Vitals: Temp Pulse Resp BP Pulse Ox 98.7 F 62 16 108/69 96 09/05/17 08:24 09/05/17 08:24 09/05/17 08:24 09/05/17 08:24 09/05/17 08:24 General appearance: Present: A&O X 3, no acute distress, answers questions appropriately - Respiratory Respiratory exam: Present: CTAB. Absent: accessory muscle use, rales, rhonchi, wheezes - Cardiovascular Cardiovascular exam: Present: RRR, +S1, +S2. Absent: diastolic murmur, gallop, rubs, systolic murmur - GI/Abdominal GI/Abdominal exam: Present: normal bowel sounds, soft, no peritoneal signs. Absent: distended, tenderness - Extremities Exam Extremities exam: Present: warm, radial pulses palpable and symmetrical. Absent : calf tenderness, cyanotic, pedal edema (non pitting) <Sanjeev Briggs - Last Filed: 09/05/17 12:34> Date of Encounter: 09/05/17 Procedures/tests Complete & Pending: Procedures Performed prior 72 hours Category Date Time Status CT abd pelvis wo no iv no oral [CT] Routine Cat Scan 09/03/17 17:[address] chest w/o contrast [CT chest wo con] [CT] Routine Cat Scan 09/04/17 11:42 Draft US retroperitoneal limited [US] Stat Exams 09/02/17 20:13 Completed MR head/brain wo con [MR] Stat MRI 09/02/17 20:14 Completed ECG 12 lead ECG [ECG] Routine Y 09/03/17 12:48 Completed EV carotid duplex imaging BI Stat Y 09/03/17 20:14 Completed EV echocardiogram w enhance Stat Y 09/03/17 20:14 Completed Date of admission: 09/02/17 19:56 Primary care physician: Mercedes Stephens CNP Consults: 09/02/17 23:06 Consult to Nutrition [CONS] Routine Comment: Consulting Provider: NUTRITION Reason for Dietary Consult: Diet Education 09/03/17 11:27 Consult to Occupational Therapy [CONS] Routine Comment: Evaluate, develop and implement POC Reason for Consult: deconditioned Consult to Physical Therapy [CONS] Routine Comment: Evaluate, develop and implement POC Reason for Consult: deconditioned 09/03/17 15:01 Consult to Psychiatry [CONS] Routine Consulting Provider: Psychiatry Harrison Reason for Consult: major depress, make medication adjustment suggestions Call Completed: Yes 09/03/17 15:26 Consult to Nephrology [CONS] Routine Consulting Provider: Kidney Ivette/THAO/GEORGE/KWABENA Reason for Consult: CKD stage III, worsening Cr over past few months, she is concerned about chronic intermittent hematuria. doesn't have medical consultant. Call Completed: Yes 09/03/17 16:15 Consult to Interpret Exam [CONS] Routine Consulting Provider: Everton Boone I Consult to Interpret Exam: Interpret EEG 09/03/17 16:34 Consult to Building Performance Specialist [CONS] Routine Reason for SW Consult: Discharge planning 09/04/17 11:42 Consult to Vascular Surgery [CONS] Routine Consulting Provider: Vascular Surgery Ivette Reason for Consult: possible carotid endarterectomy- stroke like symptoms Call Completed: No Hospital course: Ms. Hanna is a 37 year old female - Time Spent with Patient Total time spent providing and/or coordinating discharge services: - Constitutional Vitals: Temp Pulse Resp BP Pulse Ox 98.7 F 62 16 108/69 96 09/05/17 08:24 09/05/17 08:24 09/05/17 08:24 09/05/17 08:24 09/05/17 08:24 - Attending Attestation I examined this patient and my medical decision-making was reviewed with the Resident Physician, Dr Lala. I agree with the documented findings, disposition and treatment plan as described. Patient was admitted for workup and treatment of renal failure. She was diagnosed with acute kidney injury secondary to dehydration. This has resolved with IV fluids. Her creatinine is 1.2 today. She was treated with IV fluids. She has gained 3 kg during this hospitalization and complains of worsening diffuse swelling particularly in her lower extremities. For this I will prescribe Lasix every other day for 6 days. Advised her to be cautious with Lasix given her recent episode of dehydration. Her blood pressure has been well controlled during this hospitalization off any blood pressure medications and I will follow-up all therefore I will discontinue lisinopril HCTZ which could have contributed to her renal failure. She will have blood work done outpatient next week and a follow-up visit with her PCP within the next 2 weeks. She will continue counseling. We will prescribe BuSpar and continue Cymbalta. Psychiatry recommendations. On exam she is in no acute distress awake alert and oriented. Heart is regular. Lungs are clear. Extremities have 1+ bilateral pitting edema.
--- NOTE | 2017-09-05 12:36 | Physician Discharge Referral ---
Home Health/Hosp Referral Info Transfer to: Home Health Provider in Charge Post Discharge: PCP - Diagnosis (1) Physical deconditioning Status: Acute (2) Acute kidney insufficiency Status: Acute (3) Anxiety Status: Acute (4) Carotid stenosis, left Status: Acute (5) Dehydration Status: Acute (6) Speech abnormality Status: Acute (7) Stress reaction causing mixed disturbance of emotion and conduct Status: Acute (8) Weight loss Status: Acute - Respiratory Orders Smoking Cessation: Smoking cessation has been advised. For more information, call the [place] Tobacco Quit Line at 5-015-MWZI-NOW. - Diet/Nutrition Diet/Nutrition Orders: No Added Salt (ERROL) - Activity Activity Orders: Ambulate - Services Needed Following services are medically necessary services: Nursing, Physical Therapy - Transfer Medications Prescriptions: Aspirin Enteric Coated [Aspirin EC] 81 mg PO DAILY #30 tablet. Atorvastatin [Lipitor] 40 mg PO HS #30 tablet Buspirone HCl [Buspar] 5 mg PO BID #60 tablet Furosemide [Lasix] 20 mg PO 3XW #3 tablet Home Medications: Amoxicillin [Amoxil] 500 mg PO BID 09/02/17 [History] DULoxetine [Cymbalta] 20 mg PO BID 09/02/17 [History] Gabapentin [Neurontin] 300 mg PO TID 09/02/17 [History] Topiramate [Topamax] 25 mg PO BID 09/02/17 [History] Trazodone HCl 100 mg PO HS 09/02/17 [History] Aspirin Enteric Coated [Aspirin EC] 81 mg PO DAILY #30 tablet. 09/05/17 [Rx] Atorvastatin [Lipitor] 40 mg PO HS #30 tablet 09/05/17 [Rx] Buspirone HCl [Buspar] 5 mg PO BID #60 tablet 09/05/17 [Rx] Furosemide [Lasix] 20 mg PO 3XW #3 tablet 09/05/17 [Rx] Allergies/Adverse Reactions: 3 Allergy/AdvReac Type Severity Reaction Status Date / Time nitrofurantoin Allergy See Verified 03/29/16 19:50 [From Macrobid] Comments Certification: Further, I certify that my clinical findings support that this patient is homebound (i.e. absences from home require considerable and taxing effort and are for medical reasons or buddhist services or infrequently or short duration when for other reasons) because: Homebound Reason: Patient requires assistance of a person or device to safely leave home, Leaving home requires considerable and taxing effort due to condition Attestation: My signature below is to certify that this patient is under my care and that I, or nurse practitioner, or a physician's title assistant working with me, has a face-to -face encounter with this patient.
[2017-09-05 15:46] LABS: Total Volume 24 Hour,Urine 1.68 Liters (0.60-1.60)
[2017-09-05 19:09] LABS: Creatinine 24 Hour,Urine 1.41 g/day (0.71-1.65)
[2017-09-07 10:36] LABS: ANA IgG by ELISA NONE DETECTED (None Detected)
== END 2017-09-05 12:08 | disposition home health service (06) ==
LOC: 3ANU 16:22 → EMEROO 16:22 → SUATTDRO 19:56 → 3ANU 20:10 → 3NENU 09-03 02:20
PROVIDERS: ADMIT Family Medicine; ATTEND Internal Medicine